=== PATIENT | female | born 1995 | race Caucasian/White ===

== ENCOUNTER → 2021-11-16 | Outpatient (CLI) | payer OTHER ==
--- NOTE | 2021-11-26 06:32 | HM ---
HOLTER MONITOR REPORT 48-hour Holter report. This is a 48-hour Holter. There was no diary provided. Predominant rhythm appears to be sinus tachycardia. Heart rate ranging from 64 to 167 beats per minute with an average heart rate of 93 beats per minute. Rare isolated PACs and PVCs were noted. No significant bradyarrhythmia was noted. FINAL IMPRESSION: Predominant rhythm is sinus rhythm and sinus tachycardia. Average heart rate of 93 beats per minute. Rare isolated PACs and PVCs. No significant bradyarrhythmia noted. No diary provided. MMODL / IJN: [id number] /
== END | disposition home or self-care (01) ==
LOC: RADECHMAIN 07:41
PROVIDERS: ATTEND Family Medicine
DX: R00.0 Tachycardia, unspecified (principal); I49.9 Cardiac arrhythmia, unspecified
CPT/HCPCS: 93225; 93226

== ENCOUNTER → 2022-01-10 | Outpatient (CLI) | payer OTHER ==
--- NOTE | 2022-01-11 11:17 | CA ---
Transthoracic Echo Report Name: Deirdre Rowell Age: 26 Gender: F : 1995 Exam Date: 01/10/2022 13:23 Exam Location: [facility] Ht (in): 62 Wt (lb): 182 Ordering Physician: Heber Kumar MD Attending/Referring Phys: José PATEL Cardiology Consultant Sisi Carpio RDCS Procedure CPT: Indications: I34.0 Mitral valve insufficiency Cardiac Hx: Technical Quality: Fair Contrast 1: Total Dose (mL): Contrast 2: Total Dose (mL): MEASUREMENTS (Male / Female) Normal Values 2D ECHO LV Diastolic Diameter PLAX 4.5 cm 4.2 - 5.9 / 3.9 - 5.3 cm LV Systolic Diameter PLAX 2.8 cm IVS Diastolic Thickness 1.5 cm 0.6 - 1.0 / 0.6 - 0.9 cm LVPW Diastolic Thickness 1.4 cm 0.6 - 1.0 / 0.6 - 0.9 cm LV Relative Wall Thickness 0.6 RV Internal Dim ED PLAX 2.2 cm LA Volume 27.7 cm??? 18 - 58 / 22 - 52 cm??? M-MODE Aortic Root Diameter MM 2.9 cm LA Systolic Diameter MM 2.5 cm LA Ao Ratio MM 0.9 AV Cusp Separation MM 1.9 cm DOPPLER AV Peak Velocity 93.9 cm/s AV Peak Gradient 3.5 mmHg LVOT Peak Velocity 68.2 cm/s LVOT Peak Gradient 1.9 mmHg FINDINGS Left Ventricle Moderately increased left ventricular wall thickness. Mildly reduced global left ventricular systolic function. Left ventricular ejection fraction is estimated at 50 %. Right Ventricle Normal right ventricular size and function. Right ventricular systolic pressure within normal limits. Right Atrium Normal right atrial size. Left Atrium Normal left atrial size. No evidence for an atrial septal defect. Mitral Valve Mild mitral annular calcification. Trace to mild mitral regurgitation. Aortic Valve No aortic stenosis. No aortic regurgitation. Aortic valve sclerosis. Tricuspid Valve Structurally normal tricuspid valve. Mild tricuspid regurgitation. Pulmonic Valve Structurally normal pulmonic valve. Trace pulmonic regurgitation. Pericardium No pericardial effusion. Aorta Normal size aortic root and proximal ascending aorta. CONCLUSIONS LVH with ejection fraction of 50% Mild inferior wall hypokinesis Previewed by: Dr. Mitchell Fishman MD (Electronically Signed) Final Date: 11 January 2022 11:16
== END | disposition home or self-care (01) ==
LOC: RADECHMAIN 13:11
PROVIDERS: ATTEND Family Medicine
DX: I34.0 Nonrheumatic mitral (valve) insufficiency (principal)
CPT/HCPCS: 93306

== ENCOUNTER → 2022-04-06 | Outpatient (CLI) | payer OTHER ==
--- NOTE | 2022-04-07 09:57 | MR ---
EXAMINATION TYPE: MR brain wo con DATE OF EXAM: 04/06/2022 4:55 PM COMPARISON: None CLINICAL INDICATION:Female, 26 years old with history of G40.909 EPILEPSY; TECHNIQUE: Multi planar, multi sequence imaging was performed through the brain including: T1, T2, In version recovery, Diffusion weighted imaging, and gradient echo imaging. No gadolinium was given. FINDINGS: The delaney-white junctions, ventricular system, and cisterns appear unremarkable. Midline structures sh ow no abnormality. Diffusion-weighted imaging shows no evidence of restricted diffusion. The suscepti bility weighted images do not reveal any evidence for micro-hemorrhage. The bone marrow signal is within normal limits. Paranasal sinuses and mastoid air cells: Mild scattered paranasal sinus disease. Visualized orbits: Orbital contents are intact. IMPRESSION: No evidence of intracranial mass or acute/subacute infarct.
== END | disposition home or self-care (01) ==
LOC: RADMRIMAIN 16:13
PROVIDERS: ATTEND Family Medicine
DX: G40.909 Epilepsy, unspecified, not intractable, without status epilepticus (principal)
CPT/HCPCS: 70551

== ENCOUNTER → 2022-09-08 | Outpatient (CLI) | payer OTHER ==
[~2022-09-08] MED LIST: REGADENOSON 0.4 MG/5 ML SYRINGE IV PRN
--- NOTE | 2022-09-08 11:57 | CA ---
Lexiscan Nuclear Stress Test Report Name: Deirdre Rowell Exam Date: 09/08/2022 10:36 Exam Location: [facility] Ht (in): 62 Wt (lb): 182 BSA: 1.84 Ordering Phys: Jose M Contreras MD Referring Phys: JOSE M CONTRERAS,, Technologist: Cristiano Lujan Age: 27 Gender: F : 1995 Procedure CPT: Indications: R93.1 ICD-10 Codes: Patient History: CHEST PAIN, DIFFICULTY IN BREATHING, PALPITATIONS, DIABETES, FAMILY HX OF HEART DISEASE, PRIOR SMOKER QUIT 8 YEARS AGO (0.25 PPD X 2 YEARS) Medications: GABAPENTIN , LITHIUM, KEPRA, TOPOMAX, TIZADINE, MELOXICAM, TORODOL Meds past 24 hrs: Pretest Chest Pain: STRESS TEST Lexiscan Protocol Exercise Duration (min:sec): 02:[address] Depressions (mm): Angina Score: De Jesus Score: Resting HR (bpm): 92 Peak HR (bpm): 142 Resting BP (mmHg): 101 / 61 Peak BP (mmHg): 111 / 58 MPHR: 191 Target HR: 162 % MPHR: 74 METS: 1.0 Total Dose: Peak Dose: Atropine: Double Product: 65880 BP Response: Stress Termination: INFUSION COMPLETE Stress Symptoms: SHORTNESS OF BREATH, CHEST PAIN "5" Stress Summary: ECG ANALYSIS Resting ECG: Normal sinus rhythm normal axis, and develops Q waves in the inferior leads Stress ECG: Patient was given Lexiscan protocol name is no significant ST segment depression CONCLUSIONS Negative stress test by EKG criteria Cardiolite portion of stress test will be reported separately Dr. Jose M Contreras MD (Electronically Signed) Final Date: 08 September 2022 11:56
--- NOTE | 2022-09-08 13:15 | NM ---
EXAMINATION TYPE: NM stress lexiscan cardiolite DATE OF EXAM: 09/08/2022 COMPARISON: NONE CLINICAL INDICATION: Female, 27 years old with history of R93.1; TECHNIQUE: After the intravenous administration of 9.94 mCi Tc 99m Sestamibi - Cardiolite resting SP ECT images acquired 45 minutes post injection. The patient received 0.4mg Lexiscan, 26.1 mCi Tc 99m Sestamibi - Stress images obtained [address] injection FINDINGS: Review of stress and rest SPECT images demonstrates no distinct perfusion abnormality. Gated analysi s shows normal wall motion with an estimated left ventricular ejection fraction of 49 %. IMPRESSION: Ejection fraction of only 49%. No definite stress-induced reversible ischemia.
== END | disposition home or self-care (01) ==
LOC: RADNMMAIN 08:57
PROVIDERS: ATTEND Internal Medicine Cardiovascular Disease
DX: R07.9 Chest pain, unspecified (principal); R93.1 Abnormal findings on diagnostic imaging of heart and coronary circulation
CPT/HCPCS: 93017; 78452; A9500; J2785

== ENCOUNTER 2022-11-13 14:21 | Emergency (ER) | payer OTHER ==
[2022-11-13 14:42] VITALS: RESP 18; TEMP 98
[2022-11-13] MEDS ORDERED: SODIUM CHLORIDE 0.9% 1,000 ML IV ONE (15:04)
--- NOTE | 2022-11-13 15:36 | ED ---
General Adult HPI - General Source: patient, RN notes reviewed, old records reviewed Mode of arrival: ambulatory Limitations: altered mental status <Rosendo Chow - Last Filed: 11/13/22 16:03> <Cecilio Baez - Last Filed: 11/21/22 03:49> - General Chief complaint: Neuro Symptoms/Deficit Stated complaint: Low BP Time Seen by Provider: 11/13/22 14:53 - History of Present Illness Initial comments: 27-year-old female presents for evaluation of lethargy and hypotension. Patient had been seen at [facility] yesterday and apparently have full workup. She was discharged home and it followed up with the primary care provider this morning, Dr. Kumar. Dr. Kumar accent the patient to the emergency department for low blood pressure and lethargy. Patient had recent admission with prolonged seizure and apparently did have some anoxic brain injury associated with this. She is also on multiple medications and took an Ativan just prior to arrival. His been no measured fever. No vomiting. Denies headache. Patient will answer simple questions but the majority of the history is provided from patient's roommate who is at bedside. (Rosendo Chow) - Related Data Home Medications Medication Instructions Recorded Confirmed Albuterol Inhaler [Ventolin Hfa 1 - 2 puff INHALATION RT-Q6H PRN 09/30/22 09/30/22 Inhaler] Empagliflozin [Jardiance] 10 mg PO DAILY 09/30/22 09/30/22 Famotidine 40 mg PO DAILY 09/30/22 09/30/22 Fluticasone Nasal [place] [Flonase 1 spray EA NOSTRIL DAILY 09/30/22 09/30/22 Nasal [place]] Gabapentin [Neurontin] 400 mg PO TID 09/30/22 09/30/22 INSULIN LISPRO (humaLOG) [humaLOG] 3 units SQ TID-W/MEALS 09/30/22 09/30/22 Ibuprofen [Motrin] 800 mg PO QID PRN 09/30/22 09/30/22 LORazepam [Ativan] 0.5 mg PO DAILY PRN 09/30/22 09/30/22 Labetalol [Trandate] 100 mg PO BID 09/30/22 09/30/22 Spencer Carbonate ER [Lithobid] 450 mg PO HS 09/30/22 09/30/22 Meloxicam [Mobic] 15 mg PO DAILY 09/30/22 09/30/22 Olanzapine/Samidorphan Malate 1 tab PO HS 09/30/22 09/30/22 [Lybalvi 10-10 mg Tablet] Omeprazole 40 mg PO DAILY 09/30/22 09/30/22 Potassium Chloride ER [K-Dur 10] 10 meq PO DAILY 09/30/22 09/30/22 QUEtiapine [SEROquel] 25 mg PO HS 09/30/22 09/30/22 QUEtiapine [SEROquel] 100 mg PO HS 09/30/22 09/30/22 Rimegepant Sulfate [Nurtec Odt] 75 mg PO DAILY PRN 09/30/22 09/30/22 Topiramate 200 mg PO TID 09/30/22 09/30/22 lamoTRIgine [LaMICtal] See Taper PO DIRECTED 09/30/22 09/30/22 levETIRAcetam [Keppra] 750 mg PO BID 09/30/22 09/30/22 lisinopriL [Zestril] 5 mg PO DAILY 09/30/22 09/30/22 medroxyPROGESTERone [Depo-Provera] 150 mg IM Q90D 09/30/22 09/30/22 tiZANidine [Zanaflex] 2 mg PO Q8HR PRN 09/30/22 09/30/22 Allergies Allergy/AdvReac Type Severity Reaction Status Date / Time acetaminophen [From Tylenol] Allergy Rash/Hives Verified 11/13/22 14:34 Penicillins Allergy Rash/Hives Verified 11/13/22 14:34 Review of Systems ROS Other: All systems not noted in ROS Statement are negative. <Rosendo Chow - Last Filed: 11/13/22 16:03> ROS Other: All systems not noted in ROS Statement are negative. <Cecilio Baez - Last Filed: 11/21/22 03:49> ROS Statement: Those systems with pertinent positive or pertinent negative responses have been documented in the HPI. Past Medical History Past Medical History: Diabetes Mellitus, Hyperlipidemia, Hypertension, Seizure Disorder Additional Past Medical History / Comment(s): Epilepsy, mitral valve insufficancy History of Any Multi-Drug Resistant Organisms: None Reported Past Surgical History: Unable to Obtain Additional Past Surgical History / Comment(s): Tubes in ears when 5 years old Past Anesthesia/Blood Transfusion Reactions: No Reported Reaction Past Psychological History: Bipolar, Depression Smoking Status: Never smoker, Unknown if ever smoked Past Alcohol Use History: None Reported Past Drug Use History: None Reported - Past Family History Sister(s) Family Medical History: Asthma Additional Family Medical History / Comment(s): psychological Mother Family Medical History: Dementia Father Family Medical History: Myocardial Infarction ([place]) Additional Family Medical History / Comment(s): passed @ 72 from [place] <Rosendo Chow - Last Filed: 11/13/22 16:03> General Exam Limitations: altered mental status General appearance: in no apparent distress, lethargic Head exam: Present: atraumatic, normocephalic Eye exam: Present: normal appearance, PERRL ENT exam: Present: normal exam Respiratory exam: Present: normal lung sounds bilaterally. Absent: respiratory distress, wheezes Cardiovascular Exam: Present: regular rate, normal rhythm Extremities exam: Present: normal inspection, normal capillary refill Neurological exam: Present: alert. Absent: oriented X3, motor sensory deficit Psychiatric exam: Present: flat affect Skin exam: Present: warm, dry, intact. Absent: cyanosis, diaphoretic <Rosendo Chow - Last Filed: 11/13/22 16:03> Course <Rosendo Chow - Last Filed: 11/13/22 16:03> Vital Signs 11/13/22 11/13/22 14:34 18:27 Temperature 98.0 F Pulse Rate 94 67 Respiratory 18 18 Rate Blood Pressure 103/72 104/67 O2 Sat by Pulse 100 99 Oximetry - Reevaluation(s) Reevaluation #1: 11/13/22 16:03 Patient care signed out to Dr. Can at shift change. (Rosendo Chow) Medical Decision Making <Rosendo Chow - Last Filed: 11/13/22 16:03> - Lab Data Result diagrams: 11/13/22 15:42 11/13/22 15:42 <Cecilio Baez - Last Filed: 11/21/22 03:49> - Medical Decision Making Was pt. sent in by a medical professional or institution (Dr., PA, BRIM CURLER, urgent care, hospital, or penitentiary...) When possible be specific @ -[No] Did you speak to anyone other than the patient for history (EMS, parent, family, police, friend...)? What history was obtained from this source @ -[No] Did you review nursing and triage notes (agree or disagree)? Why? @ -[I reviewed and agree with nursing and triage notes] Were old charts reviewed (outside hosp., previous admission, EMS record, old EKG, old radiological studies, urgent care reports/EKG's, penitentiary records)? Report findings @ -[No old charts were reviewed] Differential Diagnosis (chest pain, altered mental status, abdominal pain women, abdominal pain men, vaginal bleeding, weakness, fever, dyspnea, syncope, headache, dizziness, GI bleed, back pain, seizure, CVA, palpatations, mental health, musculoskeletal)? @ -[not applicable] EKG interpreted by me (3pts min.). @ Sinus rhythm rate of 85, UT interval 172, QRS duration 89, QTC [address] segment elevation X-rays interpreted by me (1pt min.). @ -[None done] CT interpreted by me (1pt min.). @ -[None done] U/S interpreted by me (1pt. min.). @ -[None done] What testing was considered but not performed or refused? (CT, X-rays, U/S, labs)? Why? @ -[None] What meds were considered but not given or refused? Why? @ -[None] Did you discuss the management of the patient with other professionals (professionals i.e. TERRIE Dickson, BRIM CURLER, lab, RT, psych nurse, social service worker, manager nursing, teacher, national service officer, telephonic case manager)? Give summary @ -[No] Was smoking cessation discussed for >3mins.? @ -[No] Was critical care preformed (if so, how long)? @ -[No] Were there social determinants of health that impacted care today? How? (Homelessness, low income, unemployed, alcoholism, drug addiction, transportation, low edu. Level, literacy, decrease access to med. care, half-way, rehab)? @ -[No] Was there de-escalation of care discussed even if they declined (Discuss DNR or withdrawal of care, Hospice)? DNR status @ -[No] What co-morbidities impacted this encounter? (DM, HTN, Smoking, COPD, CAD, Cancer, CVA, ARF, Chemo, Hep., AIDS, mental health diagnosis, sleep apnea, morbid obesity)? @ -[None] Was patient admitted / discharged? Hospital course, mention meds given and route, prescriptions, significant lab abnormalities, going to OR and other pertinent info. @ -[hospital course] Undiagnosed new problem with uncertain prognosis? @ -[No] Drug Therapy requiring intensive monitoring for toxicity (Heparin, Nitro, Insulin, Cardizem)? @ -[No] Were any procedures done? @ -[No] Diagnosis/symptom? @ -[default] Acute, or Chronic, or Acute on Chronic? @ -[default] Uncomplicated (without systemic symptoms) or Complicated (systemic symptoms)? @ -[default] Side effects of treatment? @ -[No] Exacerbation, Progression, or Severe Exacerbation? @ -[No] Poses a threat to life or bodily function? How? (Chest pain, [place], [place], pneumonia, PE, COPD, DKA, ARF, appy, cholecystitis, CVA, Diverticulitis, Homicidal, Suicidal, threat to staff... and all critical care pts) @ -[No] (Rosendo Chow) I receive this patient at the shift change. When all the studies were completed, I discussed with the patient that Dr. Chow had wanted her to be admitted and to have neurology consultation. I went and wrote the admission orders after discussing with her primary physician. Shortly after that time out was informed by the nursing that the patient had changed her mind and that she wanted to leave. She was informed of risks by nursing staff and did sign AMA paperwork while I was tied up with another patient Was patient admitted / discharged? Hospital course, mention meds given and route, prescriptions, significant lab abnormalities, going to OR and other pertinent info. @ -[I had reviewed the patient's study results, written the admission orders after discussing with her primary physician. Undiagnosed new problem with uncertain prognosis? @ -[No] Drug Therapy requiring intensive monitoring for toxicity (Heparin, Nitro, Insulin, Cardizem)? @ -[No] Were any procedures done? @ -[No] Diagnosis/symptom? @ -[Acute altered mental status Acute, or Chronic, or Acute on Chronic? @ -[Acute Uncomplicated (without systemic symptoms) or Complicated (systemic symptoms)? @ -[Uncomplicated Side effects of treatment? @ -[No] Exacerbation, Progression, or Severe Exacerbation? @ -[No] Poses a threat to life or bodily function? How? (Chest pain, [place], [place], pneumonia, PE, COPD, DKA, ARF, appy, cholecystitis, CVA, Diverticulitis, Homicidal, S uicidal, threat to staff... and all critical care pts) @ -[Undetermined at this point (Cecilio Baez) - Lab Data Lab Results 11/13/22 11/13/22 11/13/22 Range/Units 15:42 15:42 15:42 WBC 6.3 (3.8-10.6) k/uL RBC 4.76 (3.80-5.40) m/uL Hgb 15.1 D (11.4-16.0) gm/dL Hct 44.6 (34.0-46.0) % MCV 93.6 (80.0-100.0) fL MCH 31.8 (25.0-35.0) pg MCHC 34.0 (31.0-37.0) g/dL RDW 14.0 (11.5-15.5) % Plt Count 252 (150-450) k/uL MPV 8.3 Neutrophils % 54 % Lymphocytes % 35 % Monocytes % 6 % Eosinophils % 4 % Basophils % 1 % Neutrophils # 3.4 (1.3-7.7) k/uL Lymphocytes # 2.2 (1.0-4.8) k/uL Monocytes # 0.4 (0-1.0) k/uL Eosinophils # 0.2 (0-0.7) k/uL Basophils # 0.0 (0-0.2) k/uL PT 11.1 (9.0-12.0) sec INR 1.1 (<1.2) APTT 24.4 (22.0-30.0) sec Sodium 147 H (137-145) mmol/L Potassium 3.8 (3.5-5.1) mmol/L Chloride 119 H (98-107) mmol/L Carbon Dioxide 17 L (22-30) mmol/L Anion Gap 11 mmol/L BUN 7 (7-17) mg/dL Creatinine 0.60 (0.52-1.04) mg/dL Est GFR (CKD-EPI)AfAm >90 (>60 ml/min/1.73 sqM) Est GFR (CKD-EPI)NonAf >90 (>60 ml/min/1.73 sqM) Glucose 90 (74-99) mg/dL Calcium 9.0 (8.4-10.2) mg/dL Total Bilirubin 0.4 (0.2-1.3) mg/dL AST 19 (14-36) U/L ALT 17 (4-34) U/L Alkaline Phosphatase 48 (38-126) U/L Ammonia (<30) umol/L Troponin I (0.000-0.034) ng/mL Total Protein 7.3 (6.3-8.2) g/dL Albumin 4.0 (3.5-5.0) g/dL Urine Color Urine Appearance (Clear) Urine pH (5.0-8.0) Ur Specific [place] (1.001-1.035) Urine Protein (Negative) Urine Glucose (UA) (Negative) Urine Ketones (Negative) Urine Blood (Negative) Urine Nitrite (Negative) Urine Bilirubin (Negative) Urine Urobilinogen (<2.0) mg/dL Ur Leukocyte Esterase (Negative) Urine RBC (0-5) /hpf Urine WBC (0-5) /hpf Ur Squamous Epith Cells (0-4) /hpf Urine Bacteria (None) /hpf Urine Mucus (None) /hpf Urine Opiates Screen (NotDetected) Ur Oxycodone Screen (NotDetected) Urine Methadone Screen (NotDetected) Ur Propoxyphene Screen (NotDetected) Ur Barbiturates Screen (NotDetected) U Tricyclic Antidepress (NotDetected) Ur Phencyclidine Scrn (NotDetected) Ur Amphetamines Screen (NotDetected) U Methamphetamines Scrn (NotDetected) U Benzodiazepines Scrn (NotDetected) Spencer <0.2 mmol/L Urine Cocaine Screen (NotDetected) U Marijuana (THC) Screen (NotDetected) Serum Alcohol <10 mg/dL 11/13/22 11/13/22 11/13/22 Range/Units 15:42 15:42 16:24 WBC (3.8-10.6) k/uL RBC (3.80-5.40) m/uL Hgb (11.4-16.0) gm/dL Hct (34.0-46.0) % MCV (80.0-100.0) fL MCH (25.0-35.0) pg MCHC (31.0-37.0) g/dL RDW (11.5-15.5) % Plt Count (150-450) k/uL MPV Neutrophils % % Lymphocytes % % Monocytes % % Eosinophils % % Basophils % % Neutrophils # (1.3-7.7) k/uL Lymphocytes # (1.0-4.8) k/uL Monocytes # (0-1.0) k/uL Eosinophils # (0-0.7) k/uL Basophils # (0-0.2) k/uL PT (9.0-12.0) sec INR (<1.2) APTT (22.0-30.0) sec Sodium (137-145) mmol/L Potassium (3.5-5.1) mmol/L Chloride (98-107) mmol/L Carbon Dioxide (22-30) mmol/L Anion Gap mmol/L BUN (7-17) mg/dL Creatinine (0.52-1.04) mg/dL Est GFR (CKD-EPI)AfAm (>60 ml/min/1.73 sqM) Est GFR (CKD-EPI)NonAf (>60 ml/min/1.73 sqM) Glucose (74-99) mg/dL Calcium (8.4-10.2) mg/dL Total Bilirubin (0.2-1.3) mg/dL AST (14-36) U/L ALT (4-34) U/L Alkaline Phosphatase (38-126) U/L Ammonia 103 H (<30) umol/L Troponin I <0.012 (0.000-0.034) ng/mL Total Protein (6.3-8.2) g/dL Albumin (3.5-5.0) g/dL Urine Color Yellow Urine Appearance Clear (Clear) Urine pH 6.5 (5.0-8.0) Ur Specific [place] 1.020 (1.001-1.035) Urine Protein Negative (Negative) Urine Glucose (UA) Negative (Negative) Urine Ketones Trace (Negative) Urine Blood Negative (Negative) Urine Nitrite Negative (Negative) Urine Bilirubin Negative (Negative) Urine Urobilinogen <2.0 (<2.0) mg/dL Ur Leukocyte Esterase Moderate (Negative) Urine RBC 1 (0-5) /hpf Urine WBC 3 (0-5) /hpf Ur Squamous Epith Cells 3 (0-4) /hpf Urine Bacteria Few H (None) /hpf Urine Mucus Rare H (None) /hpf Urine Opiates Screen Not Detected (NotDetected) Ur Oxycodone Screen Not Detected (NotDetected) Urine Methadone Screen Not Detected (NotDetected) Ur Propoxyphene Screen Not Detected (NotDetected) Ur Barbiturates Screen Detected H (NotDetected) U Tricyclic Antidepress Not Detected (NotDetected) Ur Phencyclidine Scrn Not Detected (NotDetected) Ur Amphetamines Screen Not Detected (NotDetected) U Methamphetamines Scrn Not Detected (NotDetected) U Benzodiazepines Scrn Detected H (NotDetected) [place] mmol/L Urine Cocaine Screen Not Detected (NotDetected) U Marijuana (THC) Screen Not Detected (NotDetected) Serum Alcohol mg/dL Disposition <Rosendo Chow - Last Filed: 11/13/22 16:03> Is patient prescribed a controlled substance at d/c from ED?: No <Cecilio Baez - Last Filed: 11/21/22 03:49> Clinical Impression: Altered mental status, Dehydration Disposition: LEFT AGAINST MEDICAL ADVICE Condition: Fair Instructions (If sedation given, give patient instructions): Altered Mental Status (ED) Referrals: Heber Kumar MD [Primary Care Provider] - 1-2 days
[2022-11-13 15:58] LABS: Basophils % (A) 1 %; Eosinophils # (A) 0.2 k/uL (0-0.7); Eosinophils % (A) 4 %; HCT 44.6 % (34.0-46.0); Lymphocytes # (A) 2.2 k/uL (1.0-4.8); Lymphocytes % (A) 35 %; MCH 31.8 pg (25.0-35.0); MCV 93.6 fL (80.0-100.0); Mean Platelet Volume 8.3; Monocytes # (A) 0.4 k/uL (0-1.0); Monocytes % (A) 6 %; Neutrophils # (A) 3.4 k/uL (1.3-7.7); Neutrophils % (A) 54 %; Platelet Count 252 k/uL (150-450); RBC 4.76 m/uL (3.80-5.40); WBC 6.3 k/uL (3.8-10.6)
[2022-11-13 16:10] LABS: INR 1.1 (<1.2); Partial Thromboplastin Time 24.4 sec (22.0-30.0); Prothrombin Time 11.1 sec (9.0-12.0)
[2022-11-13 16:23] LABS: HGB 15.1 gm/dL (11.4-16.0)
[2022-11-13 16:35] LABS: Appearance,Urine Clear (Clear); Color,Urine Yellow
[2022-11-13 16:35] LABS: ALT 17 U/L (4-34); AST 19 U/L (14-36); African American GFR (CKD) >90 (>60 ml/min/1.73 sqM); Alcohol <10 mg/dL; Alkaline Phosphatase 48 U/L (38-126); Anion Gap 11 mmol/L; Blood Urea Nitrogen 7 mg/dL (7-17); Carbon Dioxide 17 mmol/L (22-30); Chloride 119 mmol/L (98-107); Glucose 90 mg/dL (74-99); Lithium <0.2 mmol/L; Non-African American GFR(CKD) >90 (>60 ml/min/1.73 sqM); Potassium 3.8 mmol/L (3.5-5.1); Sodium 147 mmol/L (137-145); Total Bilirubin 0.4 mg/dL (0.2-1.3); Total Protein 7.3 g/dL (6.3-8.2)
[2022-11-13 16:36] LABS: Bilirubin,Urine Negative (Negative); Blood,Urine Negative (Negative); Glucose,Urine (UA) Negative (Negative); Ketones,Urine Trace (Negative); Leukocyte Esterase,Urine Moderate (Negative); Nitrite,Urine Negative (Negative); PH, Urine 6.5 (5.0-8.0); Protein,Urine Negative (Negative); Urobilinogen,Urine <2.0 mg/dL (<2.0)
[2022-11-13 16:40] LABS: Bacteria,Urine Few /hpf; Mucus,Urine Rare /hpf; RBC,Urine 1 /hpf (0-5); Squamous Epithelial Cell,Urine 3 /hpf (0-4); WBC,Urine 3 /hpf (0-5)
[2022-11-13 16:46] LABS: Amphetamine Screen,Urine Not Detected (NotDetected); Barbiturate Screen,Urine Detected (NotDetected); Benzodiazepines Screen,Urine Detected (NotDetected); Cocaine Screen,Urine Not Detected (NotDetected); Methadone Screen, Urine Not Detected (NotDetected); Opiate Screen,Urine Not Detected (NotDetected); Oxycodone Screen, Urine Not Detected (NotDetected); Phencyclidine Screen,Urine Not Detected (NotDetected); Tricyclic Antidepressant,Urine Not Detected (NotDetected); Urn Cannabinoid Scrn Not Detected (NotDetected)
[2022-11-13] MEDS ORDERED: NALOXONE 0.4 MG/ML 1 ML VIAL IV PRN (18:03)
[2022-11-13] MEDS ORDERED: SODIUM CHLORIDE 0.9% 1,000 ML IV SCH (18:15)
[2022-11-13 18:27] VITALS: BP 104/67; PULSE 67
--- NOTE | 2022-11-15 15:29 | HP ---
HISTORY AND PHYSICAL CHIEF COMPLAINT: Mental status changes. HISTORY OF PRESENT ILLNESS: This is another admission for this 27-year-old white female. About a month or so ago, she was in the hospital for grand mal seizure disorder and she went into status epilepticus and was transferred to [facility]. She was there for extended period of time. She initially was in ICU on a ventilator. As she recovered, it became clear that she had suffered some anoxic brain injury. She recently returned home, but her mentation has been slowed. She was in the office last week, doing well and then apparently over the weekend she became more somnolent and confused and was taken to the emergency room at [facility] where she was evaluated and then released. Her roommate states that she has been having some seizures over the last several days. She came back into the office today on the day of admission and was more lethargic and hypotensive with a systolic blood pressure of 88. She could not be further evaluated and was referred to the hospital for admission. It is not clear if this is related to encephalopathy, hypotension, seizure activity with postictal depression, etc. REVIEW OF SYSTEMS: Not obtainable. She does deny headache, chest pain, abdominal pain, or chills. Past medical history, family history, personal and social histories reveal that she is allergic to numerous items such as erythromycin, Vraylar, sulfa, Cymbalta, Lipitor, Tylenol, Benadryl, and penicillin. We believe her current medications include levetiracetam 1 g twice a day, gabapentin 600 mg 4 times a day, ibuprofen 800 mg 4 times a day, Depakote 500 mg twice a day, Ativan 0.5 t.i.d. p.r.n., rosuvastatin 40 mg once a day, vitamin B12 injections, thiamin 100 mg once a day, ferrous sulfate 300 mg/5 mL twice a day, vitamin C, Lamictal 100 mg twice a day, and Topamax 200 mg 3 times a day. Remainder of her history is unremarkable. She used to smoke, but does not any longer. She only drinks occasionally. PHYSICAL EXAMINATION: VITAL SIGNS: Blood pressure is 88/44 with a pulse of 90 and regular, respirations 14 and she is afebrile. GENERAL: She appeared to be very somnolent. SKIN: Dry. HEAD, EARS, EYES, NOSE, MOUTH AND THROAT: Normal. NECK: Supple. CHEST: Clear. CARDIAC: Demonstrated normal sinus rhythm. ABDOMEN: Soft. EXTREMITIES: Normal. NEUROLOGIC: She was lethargic, but had no obvious sensory motor findings. IMPRESSION: 1. Mental status changes. 2. Hypotension. 3. Status post anoxic brain injury. 4. History of grand mal seizures with status epilepticus. 5. Rule out electrolyte imbalance. 6. Rule out postictal depression. 7. Rule out metabolic disorder. 8. Rule out medication issue. MMODL / IJN: [id number] /
--- NOTE | 2022-11-15 15:31 | DS ---
DISCHARGE SUMMARY CHIEF COMPLAINT: Lethargy, delirium, and hypotension. HISTORY OF PRESENT ILLNESS AND PHYSICAL EXAMINATION: Details of this lady's history and physical can be found in the initial workup. LABORATORY STUDIES: While she was in the hospital, she had laboratory studies, details of which can be found in the laboratory section of her chart. COURSE IN THE HOSPITAL: After admission, she was placed on bedrest, started on intravenous fluids and was to be worked up for mental status changes and possible medication effect and/or postictal depression following seizure. As she was being admitted, she decided not to stay and signed out AMA. FINAL DIAGNOSES: 1. Mental status changes. 2. Hypotension. 3. Seizure disorder. 4. Postictal depression. 5. Anoxic encephalopathy. OPERATIONS: None. CONSULTATIONS: None. DISPOSITION: She left AMA. PALOMA / LINDEN: [id number] /
== END 2022-11-13 19:17 | disposition left against medical advice (07) ==
LOC: EC 14:21
DX: R41.82 Altered mental status, unspecified (principal); E86.0 Dehydration; E11.9 Type 2 diabetes mellitus without complications; E78.5 Hyperlipidemia, unspecified; I10 Essential (primary) hypertension; F31.9 Bipolar disorder, unspecified; Z88.0 Allergy status to penicillin; Z88.6 Allergy status to analgesic agent; Z79.4 Long term (current) use of insulin; Z79.84 Long term (current) use of oral hypoglycemic drugs; Z79.899 Other long term (current) drug therapy; Z53.29 Procedure and treatment not carried out because of patient's decision for other reasons
CPT/HCPCS: 36415; 93005; 80053; 82140; 80178; 84484; 85025; 85610; 85730; 81001; 80306; 99284; 96360; G0480; 80320

== ENCOUNTER 2022-12-22 14:49 | Emergency (ER) | payer OTHER ==
[2022-12-22 15:08] VITALS: TEMP 98
[2022-12-22] MEDS ORDERED: SODIUM CHLORIDE 0.9% 1,000 ML IV STA (15:23)
--- NOTE | 2022-12-22 16:34 | ED ---
Altered Mental Status HPI - General Chief Complaint: Altered Mental Status Stated Complaint: altered mental status Time Seen by Provider: 12/22/22 14:59 Source: patient, EMS, RN notes reviewed Mode of arrival: EMS Limitations: no limitations - History of Present Illness Initial Comments: This is a 27-year-old female who presents to the emergency department for altered mental status. Patient's caregiver states that she was fatigued and somewhat slower to respond today. She had her Lamictal dose increased from 100 to 150 mg, and took the first dose of this today as well. They noticed that she is having muscle weakness and had difficulty trying to use a fork at breakfast. She went to take a nap, and was difficult to arouse when her caregiver went to wake her. She wonders if she may have had a seizure in her sleep, but wanted her evaluated due to her irregular behavior today. Patient states that she is having some chest pain and shortness of breath. She was evaluated for this at another emergency department a few days ago for this problem and everything was found to be normal. MD Complaint: altered mental status - Related Data Home Medications Medication Instructions Recorded Confirmed Albuterol Inhaler [Ventolin Hfa 1 - 2 puff INHALATION RT-Q6H PRN 09/30/22 09/30/22 Inhaler] Empagliflozin [Jardiance] 10 mg PO DAILY 09/30/22 09/30/22 Famotidine 40 mg PO DAILY 09/30/22 09/30/22 Fluticasone Nasal [place] [Flonase 1 spray EA NOSTRIL DAILY 09/30/22 09/30/22 Nasal [place]] Gabapentin [Neurontin] 400 mg PO TID 09/30/22 09/30/22 INSULIN LISPRO (humaLOG) [humaLOG] 3 units SQ TID-W/MEALS 09/30/22 09/30/22 Ibuprofen [Motrin] 800 mg PO QID PRN 09/30/22 09/30/22 LORazepam [Ativan] 0.5 mg PO DAILY PRN 09/30/22 09/30/22 Labetalol [Trandate] 100 mg PO BID 09/30/22 09/30/22 Malmo Carbonate ER [Lithobid] 450 mg PO HS 09/30/22 09/30/22 Meloxicam [Mobic] 15 mg PO DAILY 09/30/22 09/30/22 Olanzapine/Samidorphan Malate 1 tab PO HS 09/30/22 09/30/22 [Lybalvi 10-10 mg Tablet] Omeprazole 40 mg PO DAILY 09/30/22 09/30/22 Potassium Chloride ER [K-Dur 10] 10 meq PO DAILY 09/30/22 09/30/22 QUEtiapine [SEROquel] 25 mg PO HS 09/30/22 09/30/22 QUEtiapine [SEROquel] 100 mg PO HS 09/30/22 09/30/22 Rimegepant Sulfate [Nurtec Odt] 75 mg PO DAILY PRN 09/30/22 09/30/22 Topiramate 200 mg PO TID 09/30/22 09/30/22 lamoTRIgine [LaMICtal] See Taper PO DIRECTED 09/30/22 09/30/22 levETIRAcetam [Keppra] 750 mg PO BID 09/30/22 09/30/22 lisinopriL [Zestril] 5 mg PO DAILY 09/30/22 09/30/22 medroxyPROGESTERone [Depo-Provera] 150 mg IM Q90D 09/30/22 09/30/22 tiZANidine [Zanaflex] 2 mg PO Q8HR PRN 09/30/22 09/30/22 Allergies Allergy/AdvReac Type Severity Reaction Status Date / Time acetaminophen [From Tylenol] Allergy Rash/Hives Verified 12/22/22 14:57 Penicillins Allergy Rash/Hives Verified 12/22/22 14:57 Review of Systems ROS Statement: Those systems with pertinent positive or pertinent negative responses have been documented in the HPI. ROS Other: All systems not noted in ROS Statement are negative. Past Medical History Past Medical History: Diabetes Mellitus, Hyperlipidemia, Hypertension, Seizure Disorder Additional Past Medical History / Comment(s): Epilepsy, mitral valve insufficancy History of Any Multi-Drug Resistant Organisms: None Reported Past Surgical History: Unable to Obtain Additional Past Surgical History / Comment(s): Tubes in ears when 5 years old Past Anesthesia/Blood Transfusion Reactions: No Reported Reaction Past Psychological History: Bipolar, Depression Smoking Status: Never smoker, Unknown if ever smoked Past Alcohol Use History: None Reported Past Drug Use History: None Reported - Past Family History Sister(s) Family Medical History: Asthma Additional Family Medical History / Comment(s): psychological Mother Family Medical History: Dementia Father Family Medical History: Myocardial Infarction ([place]) Additional Family Medical History / Comment(s): passed @ 72 from [place] General Exam Limitations: no limitations General appearance: alert, in no apparent distress Head exam: Present: atraumatic, normocephalic, normal inspection Respiratory exam: Present: normal lung sounds bilaterally. Absent: respiratory distress, wheezes, rales, rhonchi, stridor Cardiovascular Exam: Present: regular rate, normal rhythm, normal heart sounds. Absent: systolic murmur, diastolic murmur, rubs, gallop, clicks Neurological exam: Present: alert Psychiatric exam: Present: normal affect, normal mood Skin exam: Present: warm, dry, intact, normal color. Absent: rash Course Vital Signs 12/22/22 12/22/22 12/22/22 14:51 15:57 16:00 Temperature 98 F Pulse Rate 82 80 80 Respiratory 18 18 20 Rate Blood Pressure 105/80 102/68 O2 Sat by Pulse 100 98 100 Oximetry 12/22/22 12/22/22 18:00 19:50 Temperature Pulse Rate 83 89 Respiratory 18 18 Rate Blood Pressure 98/61 101/81 O2 Sat by Pulse 99 99 Oximetry Medical Decision Making - Medical Decision Making This is a 27-year-old female who presents to the emergency department for altered mental status. Was pt. sent in by a medical professional or institution? @ -No Did you speak to anyone other than the patient for history? @ -Her caregiver and EMS provided the majority of the information, with the patient saying that she was exhibiting some shortness of breath and chest pain. Did you review nursing and triage notes? @ -Yes, and I agree, it is accurate with regards to the patient's symptoms. Were old charts reviewed? @ -No Differential Diagnosis? @ -Differential Altered Mental Status: Hypoglycemia, DKA, hypercapnia, ETOH, overdose, CO poisoning, trauma, myxedema coma, HTN encephalopathy, infection, encephalitis, psychosis, intercranial hemorrhage, hepatic encephalopathy, meningitis, CVA, this is not meant to be an all-inclusive list EKG interpreted by me (3pts min.)? @ -EKG interpreted by me demonstrating the following: Sinus rhythm. Ventricular rate 78 beats per minute, CA interval 215 milliseconds, QRS duration 92 ms, QTC 414 ms. X-rays interpreted by me (1pt min.)? @ -Chest x-ray obtained, my interpretation identifies no localized consolidations or infiltrates. CT interpreted by me (1pt min.)? @ -CT scan of the brain obtained. My interpretation identifies no evidence of acute intracranial hemorrhage or mass effect. U/S interpreted by me (1pt. min.)? @ -Not obtained What testing was considered but not performed? (CT, X-rays, U/S, labs)? Why? @ -None What meds were considered but not given? Why? @ -None Did you discuss the management of the patient with other professionals? @ -No Did you reconcile home meds? @ -No Was smoking cessation discussed for >3mins.? @ -No Was critical care preformed (if so, how long)? @ -No Were there social determinants of health that impacted care today? How? (Homelessness, low income, unemployed, alcoholism, drug addiction, transportation, low edu. Level, literacy, decrease access to med. care, [facility] [facility], rehab)? @ -No Was there de-escalation of care discussed even if they declined? (Discuss DNR or withdrawal of care, Hospice)? @ -No What co-morbidities impacted this encounter? (DM, HTN, Smoking, COPD, CAD, Cancer, CVA, Hep., AIDS, mental health diagnosis, sleep apnea, morbid obesity)? @ -DM, HLD, HTN, seizure disorder Was patient admitted / discharged? @ -Discharged. Lab work obtained and found to be nonactionable. Urinalysis negative for signs of infection. Covid, influenza, and RSV testing were negative. Chest x-ray reveals no acute process. Computed tomography scan of the brain obtained revealing no acute process. Patient was initially somewhat confused on arrival, but became much clearer and more alert as the visit progressed. Discussed with the patient and her caregiver that this could've been related to the Lamictal increase. It could also be related to a postictal state. Advised she contact her neurologist on Sunday morning and discuss this episode and her concerns. Patient otherwise discharged home in stable condition. Undiagnosed new problem with uncertain prognosis? @ -None Drug Therapy requiring intensive monitoring for toxicity (Heparin, Nitro, Insulin, Cardizem)? @ -None Were any procedures done? @ -None Diagnosis/symptom? @ -Altered mental status Acute, or Chronic, or Acute on Chronic? @ -Acute Uncomplicated (without systemic symptoms) or Complicated (systemic symptoms)? @ -Uncomplicated Side effects of treatment? @ -None Exacerbation, Progression, or Severe Exacerbation] @ -Not applicable Poses a threat to life or bodily function? @ -Unlikely Return precautions reviewed in depth, the patient is instructed to return to the emergency department with any new, worsening, or concerning symptoms. Patient verbalized understanding. This case was discussed in detail with the attending ED physician, Dr. Frank. Presentation, findings, and treatment plan discussed in detail as well. - Lab Data Result diagrams: 12/22/22 15:08 12/22/22 15:08 Lab Results 12/22/22 12/22/22 12/22/22 Range/Units 15:08 15:08 15:08 WBC 6.2 (3.8-10.6) k/uL RBC 5.00 (3.80-5.40) m/uL Hgb 15.9 (11.4-16.0) gm/dL Hct 48.1 H (34.0-46.0) % MCV 96.2 (80.0-100.0) fL MCH 31.7 (25.0-35.0) pg MCHC 33.0 (31.0-37.0) g/dL RDW 13.9 (11.5-15.5) % Plt Count 242 (150-450) k/uL MPV 8.0 Neutrophils % 58 % Lymphocytes % 30 % Monocytes % 5 % Eosinophils % 3 % Basophils % 1 % Neutrophils # 3.6 (1.3-7.7) k/uL Lymphocytes # 1.9 (1.0-4.8) k/uL Monocytes # 0.3 (0-1.0) k/uL Eosinophils # 0.2 (0-0.7) k/uL Basophils # 0.0 (0-0.2) k/uL PT 11.2 (9.0-12.0) sec INR 1.1 (<1.2) APTT 24.3 (22.0-30.0) sec D-Dimer 0.35 (<0.60) mg/L FEU Sodium 147 H (137-145) mmol/L Potassium 4.6 (3.5-5.1) mmol/L Chloride 115 H (98-107) mmol/L Carbon Dioxide 20 L (22-30) mmol/L Anion Gap 12 mmol/L BUN 10 (7-17) mg/dL Creatinine 0.79 (0.52-1.04) mg/dL Est GFR (CKD-EPI)AfAm >90 (>60 ml/min/1.73 sqM) Est GFR (CKD-EPI)NonAf >90 (>60 ml/min/1.73 sqM) Glucose 84 (74-99) mg/dL Plasma Lactic Acid Patel (0.7-2.0) mmol/L Calcium 9.3 (8.4-10.2) mg/dL Total Bilirubin 0.4 (0.2-1.3) mg/dL AST 24 (14-36) U/L ALT 15 (4-34) U/L Alkaline Phosphatase 48 (38-126) U/L Creatine Kinase 128 (30-135) U/L Troponin I (0.000-0.034) ng/mL Total Protein 7.6 (6.3-8.2) g/dL Albumin 4.3 (3.5-5.0) g/dL HCG, Qual Not Detected Urine Color Urine Appearance (Clear) Urine pH (5.0-8.0) Ur Specific Sinclair (1.001-1.035) Urine Protein (Negative) Urine Glucose (UA) (Negative) Urine Ketones (Negative) Urine Blood (Negative) Urine Nitrite (Negative) Urine Bilirubin (Negative) Urine Urobilinogen (<2.0) mg/dL Ur Leukocyte Esterase (Negative) Urine Opiates Screen (NotDetected) Ur Oxycodone Screen (NotDetected) Urine Methadone Screen (NotDetected) Ur Propoxyphene Screen (NotDetected) Ur Barbiturates Screen (NotDetected) Valproic Acid 26.7 ug/mL U Tricyclic Antidepress (NotDetected) Ur Phencyclidine Scrn (NotDetected) Ur Amphetamines Screen (NotDetected) U Methamphetamines Scrn (NotDetected) U Benzodiazepines Scrn (NotDetected) Urine Cocaine Screen (NotDetected) U Marijuana (THC) Screen (NotDetected) Serum Alcohol <10 mg/dL Influenza Type A (PCR) (Not Detectd) Influenza Type B (PCR) (Not Detectd) RSV (PCR) (Not Detectd) SARS-CoV-2 (PCR) (Not Detectd) 12/22/22 12/22/22 12/22/22 Range/Units 15:08 15:08 15:35 WBC (3.8-10.6) k/uL RBC (3.80-5.40) m/uL Hgb (11.4-16.0) gm/dL Hct (34.0-46.0) % MCV (80.0-100.0) fL MCH (25.0-35.0) pg MCHC (31.0-37.0) g/dL RDW (11.5-15.5) % Plt Count (150-450) k/uL MPV Neutrophils % % Lymphocytes % % Monocytes % % Eosinophils % % Basophils % % Neutrophils # (1.3-7.7) k/uL Lymphocytes # (1.0-4.8) k/uL Monocytes # (0-1.0) k/uL Eosinophils # (0-0.7) k/uL Basophils # (0-0.2) k/uL PT (9.0-12.0) sec INR (<1.2) APTT (22.0-30.0) sec D-Dimer (<0.60) mg/L FEU Sodium (137-145) mmol/L Potassium (3.5-5.1) mmol/L Chloride (98-107) mmol/L Carbon Dioxide (22-30) mmol/L Anion Gap mmol/L BUN (7-17) mg/dL Creatinine (0.52-1.04) mg/dL Est GFR (CKD-EPI)AfAm (>60 ml/min/1.73 sqM) Est GFR (CKD-EPI)NonAf (>60 ml/min/1.73 sqM) Glucose (74-99) mg/dL Plasma Lactic Acid Patel 0.9 (0.7-2.0) mmol/L Calcium (8.4-10.2) mg/dL Total Bilirubin (0.2-1.3) mg/dL AST (14-36) U/L ALT (4-34) U/L Alkaline Phosphatase (38-126) U/L Creatine Kinase (30-135) U/L Troponin I <0.012 (0.000-0.034) ng/mL Total Protein (6.3-8.2) g/dL Albumin (3.5-5.0) g/dL HCG, Qual Urine Color Urine Appearance (Clear) Urine pH (5.0-8.0) Ur Specific Sinclair (1.001-1.035) Urine Protein (Negative) Urine Glucose (UA) (Negative) Urine Ketones (Negative) Urine Blood (Negative) Urine Nitrite (Negative) Urine Bilirubin (Negative) Urine Urobilinogen (<2.0) mg/dL Ur Leukocyte Esterase (Negative) Urine Opiates Screen Not Detected (NotDetected) Ur Oxycodone Screen Not Detected (NotDetected) Urine Methadone Screen Not Detected (NotDetected) Ur Propoxyphene Screen Not Detected (NotDetected) Ur Barbiturates Screen Not Detected (NotDetected) Valproic Acid ug/mL U Tricyclic Antidepress Not Detected (NotDetected) Ur Phencyclidine Scrn Not Detected (NotDetected) Ur Amphetamines Screen Not Detected (NotDetected) U Methamphetamines Scrn Not Detected (NotDetected) U Benzodiazepines Scrn Detected H (NotDetected) Urine Cocaine Screen Not Detected (NotDetected) U Marijuana (THC) Screen Detected H (NotDetected) Serum Alcohol mg/dL Influenza Type A (PCR) (Not Detectd) Influenza Type B (PCR) (Not Detectd) RSV (PCR) (Not Detectd) SARS-CoV-2 (PCR) (Not Detectd) 12/22/22 12/22/22 Range/Units 15:35 18:18 WBC (3.8-10.6) k/uL RBC (3.80-5.40) m/uL Hgb (11.4-16.0) gm/dL Hct (34.0-46.0) % MCV (80.0-100.0) fL MCH (25.0-35.0) pg MCHC (31.0-37.0) g/dL RDW (11.5-15.5) % Plt Count (150-450) k/uL MPV Neutrophils % % Lymphocytes % % Monocytes % % Eosinophils % % Basophils % % Neutrophils # (1.3-7.7) k/uL Lymphocytes # (1.0-4.8) k/uL Monocytes # (0-1.0) k/uL Eosinophils # (0-0.7) k/uL Basophils # (0-0.2) k/uL PT (9.0-12.0) sec INR (<1.2) APTT (22.0-30.0) sec D-Dimer (<0.60) mg/L FEU Sodium (137-145) mmol/L Potassium (3.5-5.1) mmol/L Chloride (98-107) mmol/L Carbon Dioxide (22-30) mmol/L Anion Gap mmol/L BUN (7-17) mg/dL Creatinine (0.52-1.04) mg/dL Est GFR (CKD-EPI)AfAm (>60 ml/min/1.73 sqM) Est GFR (CKD-EPI)NonAf (>60 ml/min/1.73 sqM) Glucose (74-99) mg/dL Plasma Lactic Acid Patel (0.7-2.0) mmol/L Calcium (8.4-10.2) mg/dL Total Bilirubin (0.2-1.3) mg/dL AST (14-36) U/L ALT (4-34) U/L Alkaline Phosphatase (38-126) U/L Creatine Kinase (30-135) U/L Troponin I (0.000-0.034) ng/mL Total Protein (6.3-8.2) g/dL Albumin (3.5-5.0) g/dL HCG, Qual Urine Color Light Yellow Urine Appearance Clear (Clear) Urine pH 7.0 (5.0-8.0) Ur Specific Sinclair 1.015 (1.001-1.035) Urine Protein Negative (Negative) Urine Glucose (UA) Negative (Negative) Urine Ketones Negative (Negative) Urine Blood Negative (Negative) Urine Nitrite Negative (Negative) Urine Bilirubin Negative (Negative) Urine Urobilinogen <2.0 (<2.0) mg/dL Ur Leukocyte Esterase Negative (Negative) Urine Opiates Screen (NotDetected) Ur Oxycodone Screen (NotDetected) Urine Methadone Screen (NotDetected) Ur Propoxyphene Screen (NotDetected) Ur Barbiturates Screen (NotDetected) Valproic Acid ug/mL U Tricyclic Antidepress (NotDetected) Ur Phencyclidine Scrn (NotDetected) Ur Amphetamines Screen (NotDetected) U Methamphetamines Scrn (NotDetected) U Benzodiazepines Scrn (NotDetected) Urine Cocaine Screen (NotDetected) U Marijuana (THC) Screen (NotDetected) Serum Alcohol mg/dL Influenza Type A (PCR) Not Detected (Not Detectd) Influenza Type B (PCR) Not Detected (Not Detectd) RSV (PCR) Not Detected (Not Detectd) SARS-CoV-2 (PCR) Not Detected (Not Detectd) - Radiology Data Radiology results: report reviewed, image reviewed Disposition Clinical Impression: Altered mental status Disposition: HOME SELF-CARE Instructions (If sedation given, give patient instructions): Altered Mental Status (ED) Additional Instructions: Return to the emergency department with any new, worsening, or concerning symptoms. Contact her neurologist Sunday morning for a follow-up appointment. Follow up with your primary care provider in 1-2 days. Is patient prescribed a controlled substance at d/c from ED?: No Referrals: Heber Kumar MD [Primary Care Provider] - 1-2 days
[2022-12-22 16:53] LABS: Basophils % (A) 1 %; Eosinophils # (A) 0.2 k/uL (0-0.7); Eosinophils % (A) 3 %; HCT 48.1 % (34.0-46.0); HGB 15.9 gm/dL (11.4-16.0); Lymphocytes # (A) 1.9 k/uL (1.0-4.8); Lymphocytes % (A) 30 %; MCH 31.7 pg (25.0-35.0); MCV 96.2 fL (80.0-100.0); Monocytes # (A) 0.3 k/uL (0-1.0); Monocytes % (A) 5 %; Neutrophils # (A) 3.6 k/uL (1.3-7.7); Neutrophils % (A) 58 %; Platelet Count 242 k/uL (150-450); RDW 13.9 % (11.5-15.5); WBC 6.2 k/uL (3.8-10.6)
[2022-12-22 17:12] LABS: HCG,Qualitative Serum Not Detected
[2022-12-22 17:14] LABS: ALT 15 U/L (4-34); AST 24 U/L (14-36); African American GFR (CKD) >90 (>60 ml/min/1.73 sqM); Albumin 4.3 g/dL (3.5-5.0); Alcohol <10 mg/dL; Alkaline Phosphatase 48 U/L (38-126); Anion Gap 12 mmol/L; Blood Urea Nitrogen 10 mg/dL (7-17); Calcium 9.3 mg/dL (8.4-10.2); Carbon Dioxide 20 mmol/L (22-30); Chloride 115 mmol/L (98-107); Creatine Kinase 128 U/L (30-135); Glucose 84 mg/dL (74-99); Non-African American GFR(CKD) >90 (>60 ml/min/1.73 sqM); Sodium 147 mmol/L (137-145); Total Bilirubin 0.4 mg/dL (0.2-1.3); Total Protein 7.6 g/dL (6.3-8.2)
[2022-12-22 17:19] LABS: INR 1.1 (<1.2); Partial Thromboplastin Time 24.3 sec (22.0-30.0); Prothrombin Time 11.2 sec (9.0-12.0); Valproic Acid (Depakene) 26.7 ug/mL
--- NOTE | 2022-12-22 17:39 | XR ---
EXAMINATION TYPE: XR chest 2V DATE OF EXAM: 12/22/2022 5:06 PM CLINICAL INDICATION:Female, 27 years old with history of difficulty breathing; [facility] COMPARISON: Chest radiographs from 10/01/2022 TECHNIQUE: XR chest 2V Frontal and lateral views of the chest. FINDINGS: Lungs/Pleura: Low lung volumes are present. There is no evidence of pleural effusion, focal consolida tion, or pneumothorax. Pulmonary vascularity: Unremarkable. Heart/mediastinum: Cardiomediastinal silhouette is unremarkable. Musculoskeletal: No acute osseous pathology. Other findings: None IMPRESSION: Low lung volumes with a generalized hazy appearance which could represent atelectasis. Correlate for pulmonary edema.
[2022-12-22 18:00] LABS: Potassium 4.6 mmol/L (3.5-5.1)
[2022-12-22 18:25] LABS: Appearance,Urine Clear (Clear); Bilirubin,Urine Negative (Negative); Blood,Urine Negative (Negative); Color,Urine Light Yellow; Glucose,Urine (UA) Negative (Negative); Ketones,Urine Negative (Negative); Leukocyte Esterase,Urine Negative (Negative); Nitrite,Urine Negative (Negative); Protein,Urine Negative (Negative); Specific Gravity,Urine 1.015 (1.001-1.035); Urobilinogen,Urine <2.0 mg/dL (<2.0)
--- NOTE | 2022-12-22 18:32 | CT ---
EXAMINATION TYPE: CT brain wo con CT DLP: 1151.4 mGycm, Automated exposure control for dose reduction was used. DATE OF EXAM: 12/22/2022 6:13 PM COMPARISON: 09/30/2022. CLINICAL INDICATION:Female, 27 years old with history of altered mental status, Pt woke up from nap w ith AMS, possible seizure during sleep. TECHNIQUE: Brain: Axial CT images of the brain were obtained with coronal and sagittal reformats created and rev iewed. Contrast used: None. Oral contrast used: None. FINDINGS: Brain: Extra-axial spaces: No abnormal extra-axial fluid collections. Ventricular system: Within normal limits Cerebral parenchyma: No acute intraparenchymal hemorrhage or mass effect. The delaney-white junction is well differentiated. Cerebellum: Unremarkable. Mass effect: No evidence of midline shift. Intracranial vasculature: unremarkable Soft tissues: Normal. Calvarium/osseous structures: No depressed skull fracture. Paranasal sinuses and mastoid air cells: Mild scattered paranasal sinus disease. Visualized orbits: Orbital contents are intact. IMPRESSION: No acute intracranial process.
[2022-12-22 18:35] VITALS: RESP 18
[2022-12-22 18:55] LABS: Amphetamine Screen,Urine Not Detected (NotDetected); Barbiturate Screen,Urine Not Detected (NotDetected); Benzodiazepines Screen,Urine Detected (NotDetected); Cocaine Screen,Urine Not Detected (NotDetected); Methadone Screen, Urine Not Detected (NotDetected); Opiate Screen,Urine Not Detected (NotDetected); Oxycodone Screen, Urine Not Detected (NotDetected); Phencyclidine Screen,Urine Not Detected (NotDetected); Tricyclic Antidepressant,Urine Not Detected (NotDetected); Urn Cannabinoid Scrn Detected (NotDetected)
[2022-12-22 19:51] VITALS: BP 101/81; PULSE 89
== END 2022-12-22 20:29 | disposition home or self-care (01) ==
LOC: EC 14:49
DX: R41.82 Altered mental status, unspecified (principal); E11.9 Type 2 diabetes mellitus without complications; I10 Essential (primary) hypertension; G40.909 Epilepsy, unspecified, not intractable, without status epilepticus; E78.5 Hyperlipidemia, unspecified; F31.9 Bipolar disorder, unspecified; Z20.822 Contact with and (suspected) exposure to COVID-19; Z79.4 Long term (current) use of insulin; Z79.84 Long term (current) use of oral hypoglycemic drugs; Z79.899 Other long term (current) drug therapy; Z88.0 Allergy status to penicillin; Z88.6 Allergy status to analgesic agent
CPT/HCPCS: 36415; 93005; 85379; 80164; 80053; 80175; 82550; 83605; 84484; 85025; 85610; 85730; 81003; 84703; 80306; 87636; 71046; 70450; 99285; 96360; G0480; 80320

== ENCOUNTER 2022-12-24 14:07 | Emergency (ER) | payer OTHER ==
[2022-12-24] MEDS ORDERED: SODIUM CHLORIDE 0.9% 1,000 ML IV ONE (14:17)
[2022-12-24 14:44] VITALS: RESP 20; TEMP 98.7
[2022-12-24 15:04] LABS: Basophils % (A) 0 %; Eosinophils # (A) 0.2 k/uL (0-0.7); Eosinophils % (A) 2 %; HGB 16.1 gm/dL (11.4-16.0); Lymphocytes # (A) 1.9 k/uL (1.0-4.8); Lymphocytes % (A) 23 %; MCH 31.8 pg (25.0-35.0); MCHC 32.9 g/dL (31.0-37.0); MCV 96.6 fL (80.0-100.0); Monocytes # (A) 0.5 k/uL (0-1.0); Monocytes % (A) 6 %; Neutrophils # (A) 5.3 k/uL (1.3-7.7); Neutrophils % (A) 66 %; Platelet Count 271 k/uL (150-450); RBC 5.07 m/uL (3.80-5.40); RDW 13.8 % (11.5-15.5); WBC 8.1 k/uL (3.8-10.6)
[2022-12-24 15:19] LABS: INR 1.1 (<1.2); Partial Thromboplastin Time 24.4 sec (22.0-30.0); Prothrombin Time 11.3 sec (9.0-12.0)
--- NOTE | 2022-12-24 15:28 | ED ---
General Adult HPI - General Chief complaint: Seizure Stated complaint: Abd Pain Time Seen by Provider: 12/24/22 14:11 Source: EMS, RN notes reviewed Mode of arrival: EMS Limitations: no limitations - History of Present Illness Initial comments: 27-year-old female with past medical history significant for epilepsy and TBI presents to the emergency department with a chief complaint of possible seizure. History is limited and most of the history is provided by EMS. EMS reports they initially arrived at the scene for a blood glucose check. EMS reports glucose was within normal limits and they were about to leave the scene and the patient had an approximately 3 minutes long history of which she was not responding to verbal commands. Patient quickly returned to baseline level consciousness. Denies biting her tongue or loss of bladder function. - Related Data Home Medications Medication Instructions Recorded Confirmed Albuterol Inhaler [Ventolin Hfa 1 - 2 puff INHALATION RT-Q6H PRN 09/30/2209/30 Inhaler] Empagliflozin [Jardiance] 10 mg PO DAILY 09/30/22 09/30/22 Famotidine 40 mg PO DAILY 09/30/22 09/30/22 Fluticasone Nasal [place] [Flonase 1 spray EA NOSTRIL DAILY 09/30/22 09/30/22 Nasal [place]] Gabapentin [Neurontin] 400 mg PO TID 09/30/22 09/30/22 INSULIN LISPRO (humaLOG) [humaLOG] 3 units SQ TID-W/MEALS 09/30/22 09/30/22 Ibuprofen [Motrin] 800 mg PO QID PRN 09/30/22 09/30/22 LORazepam [Ativan] 0.5 mg PO DAILY PRN 09/30/22 09/30/22 Labetalol [Trandate] 100 mg PO BID 09/30/22 09/30/22 [place] Carbonate ER [Lithobid] 450 mg PO HS 09/30/22 09/30/22 Meloxicam [Mobic] 15 mg PO DAILY 09/30/22 09/30/22 Olanzapine/Samidorphan Malate 1 tab PO HS 09/30/22 09/30/22 [Lybalvi 10-10 mg Tablet] Omeprazole 40 mg PO DAILY 09/30/22 09/30/22 Potassium Chloride ER [K-Dur 10] 10 meq PO DAILY 09/30/22 09/30/22 QUEtiapine [SEROquel] 25 mg PO HS 09/30/22 09/30/22 QUEtiapine [SEROquel] 100 mg PO HS 09/30/22 09/30/22 Rimegepant Sulfate [Nurtec Odt] 75 mg PO DAILY PRN 09/30/22 09/30/22 Topiramate 200 mg PO TID 09/30/22 09/30/22 lamoTRIgine [LaMICtal] See Taper PO DIRECTED 09/30/22 09/30/22 levETIRAcetam [Keppra] 750 mg PO BID 09/30/22 09/30/22 lisinopriL [Zestril] 5 mg PO DAILY 09/30/22 09/30/22 medroxyPROGESTERone [Depo-Provera] 150 mg IM Q90D 09/30/22 09/30/22 tiZANidine [Zanaflex] 2 mg PO Q8HR PRN 09/30/22 09/30/22 Allergies Allergy/AdvReac Type Severity Reaction Status Date / Time acetaminophen [From Tylenol] Allergy Rash/Hives Verified 12/22/22 14:57 duloxetine [From Cymbalta] Allergy Hallucinati Verified 12/24/22 14:39 ons levetiracetam [From Keppra] Allergy Unknown Verified 12/24/22 14:39 Penicillins Allergy Rash/Hives Verified 12/22/22 14:57 Review of Systems ROS Statement: Those systems with pertinent positive or pertinent negative responses have been documented in the HPI. ROS Other: All systems not noted in ROS Statement are negative. Past Medical History Past Medical History: Diabetes Mellitus, Hyperlipidemia, Hypertension, Seizure Disorder Additional Past Medical History / Comment(s): Epilepsy, mitral valve insufficancy, TBI 2013 History of Any Multi-Drug Resistant Organisms: None Reported Past Surgical History: Unable to Obtain Additional Past Surgical History / Comment(s): Tubes in ears when 5 years old Past Anesthesia/Blood Transfusion Reactions: No Reported Reaction Past Psychological History: Bipolar, Depression Smoking Status: Former smoker Past Alcohol Use History: Heavy Past Drug Use History: Marijuana - Past Family History Sister(s) Family Medical History: Asthma Additional Family Medical History / Comment(s): psychological Mother Family Medical History: Dementia Father Family Medical History: Myocardial Infarction ([place]) Additional Family Medical History / Comment(s): passed @ 72 from [place] General Exam - General Exam Comments Initial Comments: General: Alert, in no acute distress Head: atraumatic normocephalic. Eyes PERRL, EOMI intact, mucous membranes moist Respiratory: Lungs clear to auscultation bilaterally Cardiovascular: Heart rate regular rate Abdominal: Soft without guarding or rebound Extremities: Normal inspection with full range of motion and normal capillary refill Neuroogic: alert and oriented 3, CN II-XII intact Skin: warm dry and intact with normal color Limitations: no limitations Course Vital Signs 12/24/22 12/24/22 14:22 18:38 Temperature 98.7 F Pulse Rate 88 90 Respiratory 20 20 Rate Blood Pressure 97/70 106/74 O2 Sat by Pulse 100 100 Oximetry - Reevaluation(s) Reevaluation #1: 12/24/22 16:15: Should reevaluated. Patient complaining of lower back pain. Mild skin breakdown to right gluteal area suspect that this is the cause of her pain. Patient able to transfer from stretcher to come out without difficulty. 12/24/22 17:39 Patient reevaluated. Patient is eating and drinking soda without difficulty. Patient verbalizes that she is feeling better and to be discharged home. EKG Findings - EKG Comments: EKG Findings:: I interpreted the following: EKG performed at 14:56 rate 86 bpm normal sinus rhythm AL interval 190, QRS 88 QT/QTc 381/425 Medical Decision Making - Medical Decision Making Was pt. sent in by a medical professional or institution (, PA, CHIEF INVESTIGATOR, urgent care, hospital, or custodial...) When possible be specific @ -[No] Did you speak to anyone other than the patient for history (EMS, parent, family, police, friend...)? What history was obtained from this source @ -EMS, Guardian Did you review nursing and triage notes (agree or disagree)? Why? @ -[I reviewed and agree with nursing and triage notes] Were old charts reviewed (outside hosp., previous admission, EMS record, old EKG, old radiological studies, urgent care reports/EKG's, custodial records)? Report findings @ -Chart reviewed from 12/22/2022 Differential Diagnosis (chest pain, altered mental status, abdominal pain women, abdominal pain men, vaginal bleeding, weakness, fever, dyspnea, syncope, headache, dizziness, GI bleed, back pain, seizure, CVA, palpatations, mental health, musculoskeletal)? @ -[not applicable] EKG interpreted by me (3pts min.). @ -[As above] X-rays interpreted by me (1pt min.). @ -[None done] CT interpreted by me (1pt min.). @ -[None done] U/S interpreted by me (1pt. min.). @ -[None done] What testing was considered but not performed or refused? (CT, X-rays, U/S, labs)? Why? @ CT and was considered however computed tomography scan unremarkable from 2 days ago What meds were considered but not given or refused? Why? @ -[None] Did you discuss the management of the patient with other professionals (professionals i.e. , PA, CHIEF INVESTIGATOR, lab, RT, psych nurse, social media senior associate, able bodied watchman, teacher, tactical deception plans officer, dependency case manager)? Give summary @ -[No] Was smoking cessation discussed for >3mins.? @ -[No] Was critical care preformed (if so, how long)? @ -[No] Were there social determinants of health that impacted care today? How? (Homelessness, low income, unemployed, alcoholism, drug addiction, transportation, low edu. Level, literacy, decrease access to med. care, fci, rehab)? @ -[No] Was there de-escalation of care discussed even if they declined (Discuss DNR or withdrawal of care, Hospice)? DNR status @ -[No] What co-morbidities impacted this encounter? (DM, HTN, Smoking, COPD, CAD, Cancer, CVA, ARF, Chemo, Hep., AIDS, mental health diagnosis, sleep apnea, morbid obesity)? @ -[None] Was patient admitted / discharged? Hospital course, mention meds given and route, prescriptions, significant lab abnormalities, going to OR and other pertinent info. @ Discharge. This is a pleasant 27-year-old female with a history of seizures who presents the emergency department with possible seizure. Patient had a thorough history and physical exam performed on the ED. Physical exam essentially unremarkable. Patient is alert and oriented 3. Heart rate regular rate and rhythm, lungs clear to auscultation bilaterally abdomen soft and nontender. There are no focal neuro deficits upon exam. Patient able to transfer from the cart to a wheelchair without difficulty. Patient did not have any seizure-like activity during the course of the ED. Patient laboratory studies revealed WBC 8.1, hemoglobin 16.1 coagulation studies unremarkable sodium [id number] BUN 6, creatinine 0.7 point initial glucose 78 Urinalysis negative. HCG negative Patient did not have any seizure-like activity during the course of the ED. Patient was provided [facility] induced with symptomatic improvement. At this time she was vocalizing she would like to be discharged home with her guardian. Return precautions were discussed at length. Case discussed with KRISSY George who agrees with POC Undiagnosed new problem with uncertain prognosis? @ -[No] Drug Therapy requiring intensive monitoring for toxicity (Heparin, Nitro, Insulin, Cardizem)? @ -[No] Were any procedures done? @ -[No] Diagnosis/symptom? @ -Possible seizure Acute, or Chronic, or Acute on Chronic? @ -Acute Uncomplicated (without systemic symptoms) or Complicated (systemic symptoms)? @ -Uncomplicated Side effects of treatment? @ -[No] Exacerbation, Progression, or Severe Exacerbation? @ -[No] Poses a threat to life or bodily function? How? (Chest pain, [place], [place], pneumonia, PE, COPD, DKA, ARF, appy, cholecystitis, CVA, Diverticulitis, Homicidal, Ma icidal, threat to staff... and all critical care pts) @ -Low likelihood - Lab Data Result diagrams: 12/24/22 14:37 12/24/22 15:32 Lab Results 12/24/22 12/24/22 12/24/22 Range/Units 14:37 14:37 15:32 WBC 8.1 (3.8-10.6) k/uL RBC 5.07 (3.80-5.40) m/uL Hgb 16.1 H (11.4-16.0) gm/dL Hct 49.0 H (34.0-46.0) % MCV 96.6 (80.0-100.0) fL MCH 31.8 (25.0-35.0) pg MCHC 32.9 (31.0-37.0) g/dL RDW 13.8 (11.5-15.5) % Plt Count 271 (150-450) k/uL MPV 8.0 Neutrophils % 66 % Lymphocytes % 23 % Monocytes % 6 % Eosinophils % 2 % Basophils % 0 % Neutrophils # 5.3 (1.3-7.7) k/uL Lymphocytes # 1.9 (1.0-4.8) k/uL Monocytes # 0.5 (0-1.0) k/uL Eosinophils # 0.2 (0-0.7) k/uL Basophils # 0.0 (0-0.2) k/uL PT 11.3 (9.0-12.0) sec INR 1.1 (<1.2) APTT 24.4 (22.0-30.0) sec Sodium 146 H (137-145) mmol/L Potassium 4.0 (3.5-5.1) mmol/L Chloride 117 H (98-107) mmol/L Carbon Dioxide 20 L (22-30) mmol/L Anion Gap 9 mmol/L BUN 6 L (7-17) mg/dL Creatinine 0.70 (0.52-1.04) mg/dL Est GFR (CKD-EPI)AfAm >90 (>60 ml/min/1.73 sqM) Est GFR (CKD-EPI)NonAf >90 (>60 ml/min/1.73 sqM) Glucose 78 (74-99) mg/dL POC Glucose (mg/dL) (70-110) mg/dL POC Glu Activity Director ID Plasma Lactic Acid Patel (0.7-2.0) mmol/L Calcium 8.4 (8.4-10.2) mg/dL Magnesium 2.2 (1.6-2.3) mg/dL Total Bilirubin 0.3 (0.2-1.3) mg/dL AST 45 H (14-36) U/L ALT 19 (4-34) U/L Alkaline Phosphatase 46 (38-126) U/L Total Protein 6.9 (6.3-8.2) g/dL Albumin 3.9 (3.5-5.0) g/dL HCG, Quant <2.4 mIU/mL Urine Color Urine Appearance (Clear) Urine pH (5.0-8.0) Ur Specific [place] (1.001-1.035) Urine Protein (Negative) Urine Glucose (UA) (Negative) Urine Ketones (Negative) Urine Blood (Negative) Urine Nitrite (Negative) Urine Bilirubin (Negative) Urine Urobilinogen (<2.0) mg/dL Ur Leukocyte Esterase (Negative) Urine HCG, Qual (Not Detectd) 12/24/22 12/24/22 12/24/22 Range/Units 15:32 17:05 17:05 WBC (3.8-10.6) k/uL RBC (3.80-5.40) m/uL Hgb (11.4-16.0) gm/dL Hct (34.0-46.0) % MCV (80.0-100.0) fL MCH (25.0-35.0) pg MCHC (31.0-37.0) g/dL RDW (11.5-15.5) % Plt Count (150-450) k/uL MPV Neutrophils % % Lymphocytes % % Monocytes % % Eosinophils % % Basophils % % Neutrophils # (1.3-7.7) k/uL Lymphocytes # (1.0-4.8) k/uL Monocytes # (0-1.0) k/uL Eosinophils # (0-0.7) k/uL Basophils # (0-0.2) k/uL PT (9.0-12.0) sec INR (<1.2) APTT (22.0-30.0) sec Sodium (137-145) mmol/L Potassium (3.5-5.1) mmol/L Chloride (98-107) mmol/L Carbon Dioxide (22-30) mmol/L Anion Gap mmol/L BUN (7-17) mg/dL Creatinine (0.52-1.04) mg/dL Est GFR (CKD-EPI)AfAm (>60 ml/min/1.73 sqM) Est GFR (CKD-EPI)NonAf (>60 ml/min/1.73 sqM) Glucose (74-99) mg/dL POC Glucose (mg/dL) (70-110) mg/dL POC Glu Activity Director ID Plasma Lactic Acid Patel 0.9 (0.7-2.0) mmol/L Calcium (8.4-10.2) mg/dL Magnesium (1.6-2.3) mg/dL Total Bilirubin (0.2-1.3) mg/dL AST (14-36) U/L ALT (4-34) U/L Alkaline Phosphatase (38-126) U/L Total Protein (6.3-8.2) g/dL Albumin (3.5-5.0) g/dL HCG, Quant mIU/mL Urine Color Light Yellow Urine Appearance Clear (Clear) Urine pH 6.5 (5.0-8.0) Ur Specific [place] 1.016 (1.001-1.035) Urine Protein Negative (Negative) Urine Glucose (UA) Negative (Negative) Urine Ketones Negative (Negative) Urine Blood Negative (Negative) Urine Nitrite Negative (Negative) Urine Bilirubin Negative (Negative) Urine Urobilinogen <2.0 (<2.0) mg/dL Ur Leukocyte Esterase Negative (Negative) Urine HCG, Qual Not Detected (Not Detectd) 12/24/22 Range/Units 17:08 WBC (3.8-10.6) k/uL RBC (3.80-5.40) m/uL Hgb (11.4-16.0) gm/dL Hct (34.0-46.0) % MCV (80.0-100.0) fL MCH (25.0-35.0) pg MCHC (31.0-37.0) g/dL RDW (11.5-15.5) % Plt Count (150-450) k/uL MPV Neutrophils % % Lymphocytes % % Monocytes % % Eosinophils % % Basophils % % Neutrophils # (1.3-7.7) k/uL Lymphocytes # (1.0-4.8) k/uL Monocytes # (0-1.0) k/uL Eosinophils # (0-0.7) k/uL Basophils # (0-0.2) k/uL PT (9.0-12.0) sec INR (<1.2) APTT (22.0-30.0) sec Sodium (137-145) mmol/L Potassium (3.5-5.1) mmol/L Chloride (98-107) mmol/L Carbon Dioxide (22-30) mmol/L Anion Gap mmol/L BUN (7-17) mg/dL Creatinine (0.52-1.04) mg/dL Est GFR (CKD-EPI)AfAm (>60 ml/min/1.73 sqM) Est GFR (CKD-EPI)NonAf (>60 ml/min/1.73 sqM) Glucose (74-99) mg/dL POC Glucose (mg/dL) 89 (70-110) mg/dL POC Glu Activity Director ID Puja Hurst Plasma Lactic Acid [place] (0.7-2.0) mmol/L Calcium (8.4-10.2) mg/dL Magnesium (1.6-2.3) mg/dL Total Bilirubin (0.2-1.3) mg/dL AST (14-36) U/L ALT (4-34) U/L Alkaline Phosphatase (38-126) U/L Total Protein (6.3-8.2) g/dL Albumin (3.5-5.0) g/dL HCG, Quant mIU/mL Urine Color Urine Appearance (Clear) Urine pH (5.0-8.0) Ur Specific [place] (1.001-1.035) Urine Protein (Negative) Urine Glucose (UA) (Negative) Urine Ketones (Negative) Urine Blood (Negative) Urine Nitrite (Negative) Urine Bilirubin (Negative) Urine Urobilinogen (<2.0) mg/dL Ur Leukocyte Esterase (Negative) Urine HCG, Qual (Not Detectd) Disposition Clinical Impression: Seizure Disposition: HOME SELF-CARE Condition: Stable Additional Instructions: Monitor symptoms closely Please return to the nearest emergency department symptoms worsen or persist Is patient prescribed a controlled substance at d/c from ED?: No Referrals: Heber Kumar MD [Primary Care Provider] - 1-2 days Time of Disposition: 18:05
[2022-12-24 15:50] LABS: ALT 19 U/L (4-34); AST 45 U/L (14-36); African American GFR (CKD) >90 (>60 ml/min/1.73 sqM); Albumin 3.9 g/dL (3.5-5.0); Alkaline Phosphatase 46 U/L (38-126); Anion Gap 9 mmol/L; Blood Urea Nitrogen 6 mg/dL (7-17); Calcium 8.4 mg/dL (8.4-10.2); Carbon Dioxide 20 mmol/L (22-30); Chloride 117 mmol/L (98-107); Glucose 78 mg/dL (74-99); Magnesium 2.2 mg/dL (1.6-2.3); Non-African American GFR(CKD) >90 (>60 ml/min/1.73 sqM); Sodium 146 mmol/L (137-145); Total Bilirubin 0.3 mg/dL (0.2-1.3); Total Protein 6.9 g/dL (6.3-8.2)
[2022-12-24 16:08] LABS: HCG,Quantitative Serum <2.4 mIU/mL
[2022-12-24] MEDS ORDERED: IBUPROFEN 600 MG TAB PO STA (16:12)
[2022-12-24 17:10] LABS: Glucose,Whole Blood 89 mg/dL (70-110)
[2022-12-24 17:46] LABS: Appearance,Urine Clear (Clear); Bilirubin,Urine Negative (Negative); Blood,Urine Negative (Negative); Color,Urine Light Yellow; Glucose,Urine (UA) Negative (Negative); Ketones,Urine Negative (Negative); Leukocyte Esterase,Urine Negative (Negative); Nitrite,Urine Negative (Negative); PH, Urine 6.5 (5.0-8.0); Protein,Urine Negative (Negative); Specific Gravity,Urine 1.016 (1.001-1.035); Urobilinogen,Urine <2.0 mg/dL (<2.0)
[2022-12-24 18:45] VITALS: BP 106/74; PULSE 90
== END 2022-12-24 18:44 | disposition home or self-care (01) ==
LOC: EC 14:07
DX: G40.909 Epilepsy, unspecified, not intractable, without status epilepticus (principal); E11.9 Type 2 diabetes mellitus without complications; I10 Essential (primary) hypertension; E78.5 Hyperlipidemia, unspecified; F31.9 Bipolar disorder, unspecified; F12.90 Cannabis use, unspecified, uncomplicated; Z79.4 Long term (current) use of insulin; Z79.84 Long term (current) use of oral hypoglycemic drugs; Z79.899 Other long term (current) drug therapy; Z88.0 Allergy status to penicillin; Z88.6 Allergy status to analgesic agent; Z88.8 Allergy status to other drugs, medicaments and biological substances; Z87.891 Personal history of nicotine dependence
CPT/HCPCS: 36415; 80053; 80175; 81003; 81025; 83605; 83735; 84702; 85025; 85610; 85730; 93005; 96360; 99285

== ENCOUNTER 2023-02-02 19:43 | Emergency (ER) | payer OTHER ==
[2023-02-02 20:00] VITALS: TEMP 99
[2023-02-02] MEDS ORDERED: SODIUM CHLORIDE 0.9% 1,000 ML IV STA (20:08)
[2023-02-02 21:51] LABS: Basophils % (A) 0 %; Eosinophils # (A) 0.1 k/uL (0-0.7); Eosinophils % (A) 1 %; HCT 48.1 % (34.0-46.0); HGB 16.5 gm/dL (11.4-16.0); Lymphocytes # (A) 2.1 k/uL (1.0-4.8); Lymphocytes % (A) 24 %; MCH 31.8 pg (25.0-35.0); MCHC 34.3 g/dL (31.0-37.0); MCV 92.7 fL (80.0-100.0); Mean Platelet Volume 8.3; Monocytes # (A) 0.4 k/uL (0-1.0); Monocytes % (A) 4 %; Neutrophils # (A) 6.1 k/uL (1.3-7.7); Neutrophils % (A) 69 %; Platelet Count 260 k/uL (150-450); RBC 5.19 m/uL (3.80-5.40); RDW 12.7 % (11.5-15.5); WBC 8.9 k/uL (3.8-10.6)
[2023-02-02 21:55] LABS: Appearance,Urine Clear (Clear); Bilirubin,Urine Negative (Negative); Blood,Urine Negative (Negative); Color,Urine Colorless; Glucose,Urine (UA) Negative (Negative); Ketones,Urine Negative (Negative); Leukocyte Esterase,Urine Negative (Negative); Nitrite,Urine Negative (Negative); Protein,Urine Negative (Negative); Specific Gravity,Urine 1.008 (1.001-1.035); Urobilinogen,Urine <2.0 mg/dL (<2.0)
[2023-02-02 22:06] LABS: Amphetamine Screen,Urine Not Detected (NotDetected); Barbiturate Screen,Urine Not Detected (NotDetected); Benzodiazepines Screen,Urine Not Detected (NotDetected); Cocaine Screen,Urine Not Detected (NotDetected); Methadone Screen, Urine Not Detected (NotDetected); Opiate Screen,Urine Not Detected (NotDetected); Oxycodone Screen, Urine Not Detected (NotDetected); Phencyclidine Screen,Urine Not Detected (NotDetected); Tricyclic Antidepressant,Urine Not Detected (NotDetected); Urn Cannabinoid Scrn Not Detected (NotDetected)
[2023-02-02 22:16] LABS: ALT 27 U/L (4-34); AST 27 U/L (14-36); African American GFR (CKD) >90 (>60 ml/min/1.73 sqM); Albumin 4.9 g/dL (3.5-5.0); Alkaline Phosphatase 52 U/L (38-126); Anion Gap 15 mmol/L; Blood Urea Nitrogen 12 mg/dL (7-17); Calcium 9.5 mg/dL (8.4-10.2); Carbon Dioxide 20 mmol/L (22-30); Chloride 109 mmol/L (98-107); Glucose 85 mg/dL (74-99); Lithium <0.2 mmol/L; Magnesium 2.1 mg/dL (1.6-2.3); Non-African American GFR(CKD) >90 (>60 ml/min/1.73 sqM); Potassium 3.8 mmol/L (3.5-5.1); Sodium 144 mmol/L (137-145); Total Bilirubin 0.4 mg/dL (0.2-1.3); Total Protein 8.4 g/dL (6.3-8.2)
--- NOTE | 2023-02-02 23:42 | ED ---
Seizure HPI - General Chief Complaint: Seizure Stated Complaint: Seizure Time Seen by Provider: 02/02/23 20:03 Source: EMS Mode of arrival: EMS - History of Present Illness Initial Comments: 27-year-old female with history of seizure disorder, diabetes, hypertension, hyperlipidemia presenting with chief complaint of seizure. Patient states that her caregiver called EMS because she had a seizure that was 3 minutes long which is longer than her usual seizures. Caregiver gave Valtoco nasal spray. Patient was lying in bed in did not hit her head. She states that she feels generally fatigued. No chest pain, difficulty breathing, abdominal pain, numbness, tingling, weakness, vomiting. - Related Data Home Medications Medication Instructions Recorded Confirmed Albuterol Inhaler [Ventolin Hfa 1 - 2 puff INHALATION RT-Q6H PRN 09/30/22 09/30/22 Inhaler] Empagliflozin [Jardiance] 10 mg PO DAILY 09/30/22 09/30/22 Famotidine 40 mg PO DAILY 09/30/22 09/30/22 Fluticasone Nasal [place] [Flonase 1 spray EA NOSTRIL DAILY 09/30/22 09/30/22 Nasal [place]] Gabapentin [Neurontin] 400 mg PO TID 09/30/22 09/30/22 INSULIN LISPRO (humaLOG) [humaLOG] 3 units SQ TID-W/MEALS 09/30/22 09/30/22 Ibuprofen [Motrin] 800 mg PO QID PRN 09/30/22 09/30/22 LORazepam [Ativan] 0.5 mg PO DAILY PRN 09/30/22 09/30/22 Labetalol [Trandate] 100 mg PO BID 09/30/22 09/30/22 [place] Carbonate ER [Lithobid] 450 mg PO HS 09/30/22 09/30/22 Meloxicam [Mobic] 15 mg PO DAILY 09/30/22 09/30/22 Olanzapine/Samidorphan Malate 1 tab PO HS 09/30/22 09/30/22 [Lybalvi 10-10 mg Tablet] Omeprazole 40 mg PO DAILY 09/30/22 09/30/22 Potassium Chloride ER [K-Dur 10] 10 meq PO DAILY 09/30/22 09/30/22 QUEtiapine [SEROquel] 25 mg PO HS 09/30/22 09/30/22 QUEtiapine [SEROquel] 100 mg PO HS 09/30/22 09/30/22 Rimegepant Sulfate [Nurtec Odt] 75 mg PO DAILY PRN 09/30/22 09/30/22 Topiramate 200 mg PO TID 09/30/22 09/30/22 lamoTRIgine [LaMICtal] See Taper PO DIRECTED 09/30/22 09/30/22 levETIRAcetam [Keppra] 750 mg PO BID 09/30/22 09/30/22 lisinopriL [Zestril] 5 mg PO DAILY 09/30/22 09/30/22 medroxyPROGESTERone [Depo-Provera] 150 mg IM Q90D 09/30/22 09/30/22 tiZANidine [Zanaflex] 2 mg PO Q8HR PRN 09/30/22 09/30/22 Allergies Allergy/AdvReac Type Severity Reaction Status Date / Time acetaminophen [From Tylenol] Allergy Rash/Hives Verified 02/02/23 19:56 duloxetine [From Cymbalta] Allergy Hallucinati Verified 02/02/23 19:56 ons levetiracetam [From Keppra] Allergy Unknown Verified 02/02/23 19:56 Penicillins Allergy Rash/Hives Verified 02/02/23 19:56 Review of Systems ROS Statement: Those systems with pertinent positive or pertinent negative responses have been documented in the HPI. ROS Other: All systems not noted in ROS Statement are negative. Past Medical History Past Medical History: Diabetes Mellitus, Hyperlipidemia, Hypertension, Seizure Disorder Additional Past Medical History / Comment(s): Epilepsy, mitral valve insufficancy, TBI 2012 History of Any Multi-Drug Resistant Organisms: None Reported Past Surgical History: Unable to Obtain Additional Past Surgical History / Comment(s): Tubes in ears when 5 years old Past Anesthesia/Blood Transfusion Reactions: No Reported Reaction Past Psychological History: Bipolar, Depression Smoking Status: Former smoker Past Alcohol Use History: Heavy Past Drug Use History: Marijuana - Past Family History Sister(s) Family Medical History: Asthma Additional Family Medical History / Comment(s): psychological Mother Family Medical History: Dementia Father Family Medical History: Myocardial Infarction ([place]) Additional Family Medical History / Comment(s): passed @ 72 from [place] General Exam General appearance: alert, in no apparent distress Head exam: Present: atraumatic, normocephalic, normal inspection Eye exam: Present: normal appearance, PERRL, EOMI. Absent: scleral icterus, conjunctival injection, periorbital swelling Neck exam: Present: normal inspection, full ROM Respiratory exam: Present: normal lung sounds bilaterally. Absent: respiratory distress, wheezes, rales, rhonchi, stridor Cardiovascular Exam: Present: regular rate, normal rhythm, normal heart sounds. Absent: systolic murmur, diastolic murmur, rubs, gallop, clicks Neurological exam: Present: alert, oriented X3 Expanded Speech: Present: fluid speech Cranial nerves: EOM's Intact: Normal Motor strength exam: RUE: 5, LUE: 5, RLE: 5, LLE: 5 Eye Response: (4) open spontaneously Motor Response: (6) obeys commands Verbal Response: (5) oriented Tahira Total: 15 Psychiatric exam: Present: normal affect, normal mood Skin exam: Present: warm, dry, intact, normal color. Absent: rash Course Vital Signs 02/02/23 02/03/23 19:50 00:02 Temperature 99.0 F Pulse Rate 102 H 95 Respiratory 20 18 Rate Blood Pressure 115/81 118/77 O2 Sat by Pulse 100 98 Oximetry Medical Decision Making - Medical Decision Making Was pt. sent in by a medical professional or institution ([facility], [employer], urgent care, hospital, or snf...) When possible be specific @ -No Did you speak to anyone other than the patient for history (EMS, parent, family, police, friend...)? What history was obtained from this source @ -Caregiver Did you review nursing and triage notes (agree or disagree)? Why? @ -I reviewed and agree with nursing and triage notes Were old charts reviewed (outside hosp., previous admission, EMS record, old EKG, old radiological studies, urgent care reports/EKG's, snf records)? Report findings @ -No old charts were reviewed Differential Diagnosis (chest pain, altered mental status, abdominal pain women, abdominal pain men, vaginal bleeding, weakness, fever, dyspnea, syncope, headache, dizziness, GI bleed, back pain, seizure, CVA, palpatations, mental health, musculoskeletal)? @ -MDM Differential Seizure: Recurrent seizure disorder, febrile seizure, alcohol withdrawal, stimulants, men ingitis, encephalitis, intercranial hemorrhage, intracranial tumor, stroke, eclampsia, thyrotoxicosis, hypocalcemia, hyponatremia, hypernatremia, hypomagnesemia, psychogenic this is not meant to be an all-inclusive list EKG interpreted by me (3pts min.). @ -As above X-rays interpreted by me (1pt min.). @ -None done CT interpreted by me (1pt min.). @ -None done U/S interpreted by me (1pt. min.). @ -None done What testing was considered but not performed or refused? (CT, X-rays, U/S, labs)? Why? @ -None What meds were considered but not given or refused? Why? @ -None Did you discuss the management of the patient with other professionals (marcella saucedo i.e. , PA, [employer], lab, RT, psych nurse, director social, engraver automatic, teacher, chief security officer, comp field case manager)? Give summary @ -No Was smoking cessation discussed for >3mins.? @ -No Was critical care preformed (if so, how long)? @ -No Were there social determinants of health that impacted care today? How? (Homelessness, low income, unemployed, alcoholism, drug addiction, transportatio n, low edu. Level, literacy, decrease access to med. care, intermediate, rehab)? @ -No Was there de-escalation of care discussed even if they declined (Discuss DNR or withdrawal of care, Hospice)? DNR status @ -No What co-morbidities impacted this encounter? (DM, HTN, Smoking, COPD, CAD, Cancer, CVA, ARF, Chemo, Hep., AIDS, mental health diagnosis, sleep apnea, morbid obesity)? @ -Seizure disorder Was patient admitted / discharged? Hospital course, mention meds given and route, prescriptions, significant lab abnormalities, going to OR and other pertinent info. @ -27-year-old female presenting with chief complaint of seizure. Patient has history of seizures. She has returned to her baseline. History and physical exam were conducted. Lab work requires no action. On reassessment patient is resting comfortably showed no acute signs of distress. She'll be discharged home and is instructed to follow-up with her neurologist. Caregiver is comfortable with discharge home today. Follow-up with PCP. Report back to ER with any new or worsening symptoms. Discussed return parameters and answered all questions. Patient conveyed verbal understanding and agreed to the plan. I discussed this case in detail with my attending Dr. Frank Undiagnosed new problem with uncertain prognosis? @ -No Drug Therapy requiring intensive monitoring for toxicity (Heparin, Nitro, Insulin, Cardizem)? @ -No Were any procedures done? @ -No Diagnosis/symptom? @ -Seizure disorder Acute, or Chronic, or Acute on Chronic? @ -Acute on chronic Uncomplicated (without systemic symptoms) or Complicated (systemic symptoms)? @ -Uncomplicated Side effects of treatment? @ -No Exacerbation, Progression, or Severe Exacerbation? @ -No Poses a threat to life or bodily function? How? (Chest pain, [place], [place], pneumonia, PE, COPD, DKA, ARF, appy, cholecystitis, CVA, Diverticulitis, Homicidal, Suicidal, threat to staff... and all critical care pts) @ -No - Lab Data Result diagrams: 02/02/23 21:10 02/02/23 21:10 Lab Results 02/02/23 02/02/23 02/02/23 Range/Units 21:10 21:10 21:10 WBC 8.9 (3.8-10.6) k/uL RBC 5.19 (3.80-5.40) m/uL Hgb 16.5 H (11.4-16.0) gm/dL Hct 48.1 H (34.0-46.0) % MCV 92.7 (80.0-100.0) fL MCH 31.8 (25.0-35.0) pg MCHC 34.3 (31.0-37.0) g/dL RDW 12.7 (11.5-15.5) % Plt Count 260 (150-450) k/uL MPV 8.3 Neutrophils % 69 % Lymphocytes % 24 % Monocytes % 4 % Eosinophils % 1 % Basophils % 0 % Neutrophils # 6.1 (1.3-7.7) k/uL Lymphocytes # 2.1 (1.0-4.8) k/uL Monocytes # 0.4 (0-1.0) k/uL Eosinophils # 0.1 (0-0.7) k/uL Basophils # 0.0 (0-0.2) k/uL Sodium 144 (137-145) mmol/L Potassium 3.8 (3.5-5.1) mmol/L Chloride 109 H (98-107) mmol/L Carbon Dioxide 20 L (22-30) mmol/L Anion Gap 15 mmol/L BUN 12 (7-17) mg/dL Creatinine 0.68 (0.52-1.04) mg/dL Est GFR (CKD-EPI)AfAm >90 (>60 ml/min/1.73 sqM) Est GFR (CKD-EPI)NonAf >90 (>60 ml/min/1.73 sqM) Glucose 85 (74-99) mg/dL Calcium 9.5 (8.4-10.2) mg/dL Magnesium 2.1 (1.6-2.3) mg/dL Total Bilirubin 0.4 (0.2-1.3) mg/dL AST 27 (14-36) U/L ALT 27 (4-34) U/L Alkaline Phosphatase 52 (38-126) U/L Total Protein 8.4 H (6.3-8.2) g/dL Albumin 4.9 (3.5-5.0) g/dL Urine Color Colorless Urine Appearance Clear (Clear) Urine pH 7.0 (5.0-8.0) Ur Specific [place] 1.008 (1.001-1.035) Urine Protein Negative (Negative) Urine Glucose (UA) Negative (Negative) Urine Ketones Negative (Negative) Urine Blood Negative (Negative) Urine Nitrite Negative (Negative) Urine Bilirubin Negative (Negative) Urine Urobilinogen <2.0 (<2.0) mg/dL Ur Leukocyte Esterase Negative (Negative) Urine Opiates Screen Not Detected (NotDetected) Ur Oxycodone Screen Not Detected (NotDetected) Urine Methadone Screen Not Detected (NotDetected) Ur Propoxyphene Screen Not Detected (NotDetected) Ur Barbiturates Screen Not Detected (NotDetected) U Tricyclic Antidepress Not Detected (NotDetected) Ur Phencyclidine Scrn Not Detected (NotDetected) Ur Amphetamines Screen Not Detected (NotDetected) U Methamphetamines Scrn Not Detected (NotDetected) U Benzodiazepines Scrn Not Detected (NotDetected) [place] <0.2 mmol/L Urine Cocaine Screen Not Detected (NotDetected) U Marijuana (THC) Screen Not Detected (NotDetected) Disposition Clinical Impression: Seizure Disposition: HOME SELF-CARE Condition: Good Instructions (If sedation given, give patient instructions): Recurrent Seizures in Adults (ED) Additional Instructions: Follow-up with PCP and neurologist. Report back to ER with any new or worsening symptoms. Is patient prescribed a controlled substance at d/c from ED?: No Referrals: Heber Kumar MD [Primary Care Provider] - 1-2 days Time of Disposition: 23:42
[2023-02-03 00:11] VITALS: BP 118/77; PULSE 95; RESP 18
[2023-02-05 06:19] LABS: Topiramate 17.5 ug/mL (2.0-20.0)
[2023-02-05 06:48] LABS: Levetiracetam (Keppra) <1.0 ug/mL (3.0-60.0)
[2023-02-05 13:48] LABS: Lamotrigine (Lamictal) <0.2 ug/mL (2.0-15.0)
== END 2023-02-03 00:03 | disposition home or self-care (01) ==
LOC: EC 19:43
DX: G40.909 Epilepsy, unspecified, not intractable, without status epilepticus (principal); E11.9 Type 2 diabetes mellitus without complications; I10 Essential (primary) hypertension; F31.9 Bipolar disorder, unspecified; F12.90 Cannabis use, unspecified, uncomplicated; Z87.891 Personal history of nicotine dependence; Z79.84 Long term (current) use of oral hypoglycemic drugs; Z79.4 Long term (current) use of insulin; Z79.899 Other long term (current) drug therapy; Z88.0 Allergy status to penicillin; Z88.8 Allergy status to other drugs, medicaments and biological substances; Z88.6 Allergy status to analgesic agent
CPT/HCPCS: 36415; 80053; 80175; 80177; 80178; 80201; 80306; 81003; 83735; 85025; 96360; 99284

== ENCOUNTER 2023-02-20 19:05 | Emergency (ER) | payer OTHER ==
[2023-02-20 19:25] VITALS: RESP 18; TEMP 98.4
[2023-02-20 20:01] LABS: Color,Urine Yellow
[2023-02-20 20:02] LABS: Appearance,Urine Cloudy (Clear); Bilirubin,Urine Negative (Negative); Blood,Urine Negative (Negative); Glucose,Urine (UA) Negative (Negative); Ketones,Urine Negative (Negative); Leukocyte Esterase,Urine Moderate (Negative); Nitrite,Urine Negative (Negative); PH, Urine 6.5 (5.0-8.0); Protein,Urine Negative (Negative); Urobilinogen,Urine <2.0 mg/dL (<2.0)
[2023-02-20 20:05] LABS: Bacteria,Urine Few /hpf; Mucus,Urine Rare /hpf; RBC,Urine 1 /hpf (0-5); Squamous Epithelial Cell,Urine 3 /hpf (0-4); WBC,Urine 5 /hpf (0-5)
[2023-02-20] MEDS ORDERED: ONDANSETRON 4 MG/2 ML VIAL IVP STA (20:20)
[2023-02-20] MEDS ORDERED: SODIUM CHLORIDE 0.9% 1,000 ML IV STA (20:20)
[2023-02-20] MEDS ORDERED: KETOROLAC 15 MG/ML 1 ML VIAL IVP STA (20:20)
[2023-02-20] MEDS ORDERED: MORPHINE SULFATE 2 MG/ML SYRINGE IVP STA (20:20)
--- NOTE | 2023-02-20 20:28 | ED ---
Nausea/Vomiting/Diarrhea HPI - General Chief complaint: Nausea/Vomiting/Diarrhea Stated complaint: N/V/D Time Seen by Provider: 02/20/23 20:10 Source: patient, RN notes reviewed, Caregiver Mode of arrival: wheelchair Limitations: no limitations - History of Present Illness Initial comments: This is a 27-year-old female who presents to the emergency department for nausea, vomiting, diarrhea, and abdominal pain. States that the symptoms started 3 days ago. Her friend, who is also her legal guardian, states that she has been much more sleepy and hard to arouse than normal. She has been taking Zofran at home with no relief in symptoms. She is concerned that she is not getting any better. She is unable to localize the abdominal pain. She last thr ew up shortly before arrival and does still feel nauseous. She has felt hot and wonders if she may have had fevers, but has not measured her temperature specifically. She had a negative home COVID test. MD complaint: nausea, vomiting, diarrhea, abdominal pain - Related Data Home Medications Medication Instructions Recorded Confirmed Albuterol Inhaler [Ventolin Hfa 1 - 2 puff INHALATION RT-Q6H PRN 09/30/22 09/30/22 Inhaler] Empagliflozin [Jardiance] 10 mg PO DAILY 09/30/22 09/30/22 Famotidine 40 mg PO DAILY 09/30/22 09/30/22 Fluticasone Nasal [place] [Flonase 1 spray EA NOSTRIL DAILY 09/30/22 09/30/22 Nasal [place]] Gabapentin [Neurontin] 400 mg PO TID 09/30/22 09/30/22 INSULIN LISPRO (humaLOG) [humaLOG] 3 units SQ TID-W/MEALS 09/30/22 09/30/22 Ibuprofen [Motrin] 800 mg PO QID PRN 09/30/22 09/30/22 LORazepam [Ativan] 0.5 mg PO DAILY PRN 09/30/22 09/30/22 Labetalol [Trandate] 100 mg PO BID 09/30/22 09/30/22 [place] Carbonate ER [Lithobid] 450 mg PO HS 09/30/22 09/30/22 Meloxicam [Mobic] 15 mg PO DAILY 09/30/22 09/30/22 Olanzapine/Samidorphan Malate 1 tab PO HS 09/30/22 09/30/22 [Lybalvi 10-10 mg Tablet] Omeprazole 40 mg PO DAILY 09/30/22 09/30/22 Potassium Chloride ER [K-Dur 10] 10 meq PO DAILY 09/30/22 09/30/22 QUEtiapine [SEROquel] 25 mg PO HS 09/30/22 09/30/22 QUEtiapine [SEROquel] 100 mg PO HS 09/30/22 09/30/22 Rimegepant Sulfate [Nurtec Odt] 75 mg PO DAILY PRN 09/30/22 09/30/22 Topiramate 200 mg PO TID 09/30/22 09/30/22 lamoTRIgine [LaMICtal] See Taper PO DIRECTED 09/30/22 09/30/22 levETIRAcetam [Keppra] 750 mg PO BID 09/30/22 09/30/22 lisinopriL [Zestril] 5 mg PO DAILY 09/30/22 09/30/22 medroxyPROGESTERone [Depo-Provera] 150 mg IM Q90D 09/30/22 09/30/22 tiZANidine [Zanaflex] 2 mg PO Q8HR PRN 09/30/22 09/30/22 Previous Rx's Medication Instructions Recorded Ondansetron Odt [Zofran Odt] 4 mg PO Q8HR PRN #15 tab 02/20/23 Allergies Allergy/AdvReac Type Severity Reaction Status Date / Time acetaminophen [From Tylenol] Allergy Rash/Hives Verified 02/20/23 19:20 duloxetine [From Cymbalta] Allergy Hallucinati Verified 02/20/23 19:20 ons levetiracetam [From Keppra] Allergy Unknown Verified 02/20/23 19:20 Penicillins Allergy Rash/Hives Verified 02/20/23 19:20 Review of Systems ROS Statement: Those systems with pertinent positive or pertinent negative responses have been documented in the HPI. ROS Other: All systems not noted in ROS Statement are negative. Past Medical History Past Medical History: Diabetes Mellitus, Hyperlipidemia, Hypertension, Seizure Disorder Additional Past Medical History / Comment(s): Epilepsy, mitral valve insufficancy, TBI 2013 History of Any Multi-Drug Resistant Organisms: None Reported Past Surgical History: Unable to Obtain Additional Past Surgical History / Comment(s): Tubes in ears when 5 years old Past Anesthesia/Blood Transfusion Reactions: No Reported Reaction Past Psychological History: Bipolar, Depression Smoking Status: Former smoker Past Alcohol Use History: Heavy Past Drug Use History: Marijuana - Past Family History Sister(s) Family Medical History: Asthma Additional Family Medical History / Comment(s): psychological Mother Family Medical History: Dementia Father Family Medical History: Myocardial Infarction ([place]) Additional Family Medical History / Comment(s): passed @ 72 from [place] General Exam Limitations: no limitations General appearance: alert, lethargic Head exam: Present: atraumatic, normocephalic, normal inspection Respiratory exam: Present: normal lung sounds bilaterally. Absent: respiratory distress, wheezes, rales, rhonchi, stridor Cardiovascular Exam: Present: regular rate, normal rhythm, normal heart sounds. Absent: systolic murmur, diastolic murmur, rubs, gallop, clicks GI/Abdominal exam: Present: soft, tenderness (diffuse), normal bowel sounds. Absent: distended Neurological exam: Present: alert, oriented X3, CN II-XII intact Psychiatric exam: Present: normal affect, normal mood Skin exam: Present: warm, dry, intact, normal color. Absent: rash Course Vital Signs 02/20/23 02/21/23 19:20 00:08 Temperature 98.4 F Pulse Rate 114 H 97 Respiratory 18 18 Rate Blood Pressure 105/73 113/72 O2 Sat by Pulse 96 97 Oximetry Medical Decision Making - Medical Decision Making This is a 27-year-old female who presents to the emergency department for abdominal pain, nausea, vomiting, and diarrhea. Was pt. sent in by a medical professional or institution? @ -No Did you speak to anyone other than the patient for history? @ -Her friend and legal guardian provided the majority of the information due to the patient feeling very lethargic and not wanting to answer many questions. Did you review nursing and triage notes? @ -Yes, and I agree, it is accurate with regards to the patient's symptoms. Were old charts reviewed? @ -No Differential Diagnosis? @ -Differential Abdominal Pain Women: Appendicitis, Cholecystitis, diverticulosis, ischemic bowel, pancreatitis, hepatitis, UTI, gastroenteritis, AAA, incarcerated hernia, bowel obstruction, constipation, inflammatory bowel, hepatitis, peptic ulcer disease, splenic infar ction, perforated viscus, vulvitis, ovarian torsion, PID, kidney stone, placenta abruption, this is not meant to be an all-inclusive list EKG interpreted by me (3pts min.)? @ -Not obtained X-rays interpreted by me (1pt min.)? @ -Not obtained CT interpreted by me (1pt min.)? @ -CT scan of the abdomen and pelvis obtained. My interpretation identifies no evidence of bowel wall thickening or free air. U/S interpreted by me (1pt. min.)? @ -Not obtained What testing was considered but not performed? (CT, X-rays, U/S, labs)? Why? @ -None What meds were considered but not given? Why? @ -None Did you discuss the management of the patient with other professionals? @ -No Did you reconcile home meds? @ -No Was smoking cessation discussed for >3mins.? @ -No Was critical care preformed (if so, how long)? @ -No Were there social determinants of health that impacted care today? How? (Homelessness, low income, unemployed, alcoholism, drug addiction, transportation, low edu. Level, literacy, decrease access to med. care, alf, rehab)? @ -No Was there de-escalation of care discussed even if they declined? (Discuss DNR or withdrawal of care, Hospice)? @ -No What co-morbidities impacted this encounter? (DM, HTN, Smoking, COPD, CAD, Cancer, CVA, Hep., AIDS, mental health diagnosis, sleep apnea, morbid obesity)? @ -DM, HTN, HLD, seizure disorder Was patient admitted / discharged? @ -Discharged. Lab work obtained and found to be unremarkable. Urinalysis negative for signs of infection. Covid, influenza, and RSV testing were negative. Computed tomography scan of the abdomen and pelvis obtained revealing no acute process. There is a right adrenal mass that is redemonstrated from September 2022 and is stable in appearance. Her symptoms were well controlled in the emergency department, and states that she felt hungry and requested discharge home. Prescription for Zofran provided with dosing instructions reviewed. Also discussed [id number] Imodium as needed for diarrhea. Otherwise advised she slowly advance her diet as tolerated and remain well-hydrated. Patient discharged home in stable condition and advised to follow-up with her primary care provider. Undiagnosed new problem with uncertain prognosis? @ -None Drug Therapy requiring intensive monitoring for toxicity (Heparin, Nitro, Insul in, Cardizem)? @ -None Were any procedures done? @ -None Diagnosis/symptom? @ -Abdominal pain, N/V/D Acute, or Chronic, or Acute on Chronic? @ -Acute Uncomplicated (without systemic symptoms) or Complicated (systemic symptoms)? @ -Uncomplicated Side effects of treatment? @ -None Exacerbation, Progression, or Severe Exacerbation] @ -Not applicable Poses a threat to life or bodily function? @ -No Return precautions reviewed in depth, the patient is instructed to return to the emergency department with any new, worsening, or concerning symptoms. Patient verbalized understanding. This case was discussed in detail with the attending ED physician, Dr. Ruiz. Presentation, findings, and treatment plan discussed in detail as well. - Lab Data Result diagrams: 02/20/23 20:01 02/20/23 20:01 Lab Results 02/20/23 02/20/23 02/20/23 Range/Units 19:34 20:01 20:01 WBC (3.8-10.6) k/uL RBC (3.80-5.40) m/uL Hgb (11.4-16.0) gm/dL Hct (34.0-46.0) % MCV (80.0-100.0) fL MCH (25.0-35.0) pg MCHC (31.0-37.0) g/dL RDW (11.5-15.5) % Plt Count (150-450) k/uL MPV Neutrophils % % Lymphocytes % % Monocytes % % Eosinophils % % Basophils % % Neutrophils # (1.3-7.7) k/uL Lymphocytes # (1.0-4.8) k/uL Monocytes # (0-1.0) k/uL Eosinophils # (0-0.7) k/uL Basophils # (0-0.2) k/uL Sodium (137-145) mmol/L Potassium (3.5-5.1) mmol/L Chloride (98-107) mmol/L Carbon Dioxide (22-30) mmol/L Anion Gap mmol/L BUN (7-17) mg/dL Creatinine (0.52-1.04) mg/dL Est GFR (CKD-EPI)AfAm (>60 ml/min/1.73 sqM) Est GFR (CKD-EPI)NonAf (>60 ml/min/1.73 sqM) Glucose (74-99) mg/dL Plasma Lactic Acid Patel (0.7-2.0) mmol/L Calcium (8.4-10.2) mg/dL Magnesium (1.6-2.3) mg/dL Total Bilirubin (0.2-1.3) mg/dL AST (14-36) U/L ALT (4-34) U/L Alkaline Phosphatase (38-126) U/L Total Protein (6.3-8.2) g/dL Albumin (3.5-5.0) g/dL Amylase (30-110) U/L Lipase (23-300) U/L Urine Color Yellow Urine Appearance Cloudy H (Clear) Urine pH 6.5 (5.0-8.0) Ur Specific [place] 1.020 (1.001-1.035) Urine Protein Negative (Negative) Urine Glucose (UA) Negative (Negative) Urine Ketones Negative (Negative) Urine Blood Negative (Negative) Urine Nitrite Negative (Negative) Urine Bilirubin Negative (Negative) Urine Urobilinogen <2.0 (<2.0) mg/dL Ur Leukocyte Esterase Moderate (Negative) Urine RBC 1 (0-5) /hpf Urine WBC 5 (0-5) /hpf Ur Squamous Epith Cells 3 (0-4) /hpf Urine Bacteria Few H (None) /hpf Urine Mucus Rare H (None) /hpf Urine HCG, Qual Not Detected (Not Detectd) Influenza Type A (PCR) Not Detected (Not Detectd) Influenza Type B (PCR) Not Detected (Not Detectd) RSV (PCR) Not Detected (Not Detectd) SARS-CoV-2 (PCR) Not Detected (Not Detectd) 02/20/23 02/20/23 02/20/23 Range/Units 20:01 20:01 20:01 WBC 8.4 (3.8-10.6) k/uL RBC 4.70 (3.80-5.40) m/uL Hgb 14.8 (11.4-16.0) gm/dL Hct 43.4 (34.0-46.0) % MCV 92.2 (80.0-100.0) fL MCH 31.5 (25.0-35.0) pg MCHC 34.1 (31.0-37.0) g/dL RDW 12.3 (11.5-15.5) % Plt Count 265 (150-450) k/uL MPV 8.0 Neutrophils % 62 % Lymphocytes % 30 % Monocytes % 5 % Eosinophils % 1 % Basophils % 1 % Neutrophils # 5.2 (1.3-7.7) k/uL Lymphocytes # 2.5 (1.0-4.8) k/uL Monocytes # 0.4 (0-1.0) k/uL Eosinophils # 0.1 (0-0.7) k/uL Basophils # 0.0 (0-0.2) k/uL Sodium 144 (137-145) mmol/L Potassium 3.8 (3.5-5.1) mmol/L Chloride 112 H (98-107) mmol/L Carbon Dioxide 16 L (22-30) mmol/L Anion Gap 16 mmol/L BUN 9 (7-17) mg/dL Creatinine 0.67 (0.52-1.04) mg/dL Est GFR (CKD-EPI)AfAm >90 (>60 ml/min/1.73 sqM) Est GFR (CKD-EPI)NonAf >90 (>60 ml/min/1.73 sqM) Glucose 90 (74-99) mg/dL Plasma Lactic Acid [place] 0.6 L (0.7-2.0) mmol/L Calcium 9.8 (8.4-10.2) mg/dL Magnesium 2.3 (1.6-2.3) mg/dL Total Bilirubin 0.4 (0.2-1.3) mg/dL AST 18 (14-36) U/L ALT 20 (4-34) U/L Alkaline Phosphatase 49 (38-126) U/L Total Protein 7.9 (6.3-8.2) g/dL Albumin 4.6 (3.5-5.0) g/dL Amylase 70 (30-110) U/L Lipase 227 (23-300) U/L Urine Color Urine Appearance (Clear) Urine pH (5.0-8.0) Ur Specific [place] (1.001-1.035) Urine Protein (Negative) Urine Glucose (UA) (Negative) Urine Ketones (Negative) Urine Blood (Negative) Urine Nitrite (Negative) Urine Bilirubin (Negative) Urine Urobilinogen (<2.0) mg/dL Ur Leukocyte Esterase (Negative) Urine RBC (0-5) /hpf Urine WBC (0-5) /hpf Ur Squamous Epith Cells (0-4) /hpf Urine Bacteria (None) /hpf Urine Mucus (None) /hpf Urine HCG, Qual (Not Detectd) Influenza Type A (PCR) (Not Detectd) Influenza Type B (PCR) (Not Detectd) RSV (PCR) (Not Detectd) SARS-CoV-2 (PCR) (Not Detectd) - Radiology Data Radiology results: report reviewed, image reviewed Disposition Clinical Impression: Abdominal pain, Nausea and vomiting, Diarrhea Disposition: HOME SELF-CARE Instructions (If sedation given, give patient instructions): Acute Nausea and Vomiting (ED), Acute Diarrhea (ED), Abdominal Pain (ED) Additional Instructions: Return to the emergency department with any new, worsening, or concerning symptoms. You can take the Zofran up to every 8 hours as needed for nausea and vomiting. You can take [id number] Imodium as needed for the diarrhea. Slowly advance your diet as tolerated and remain well-hydrated. Follow up with your primary care provider in 1-2 days. Prescriptions: Ondansetron Odt [Zofran Odt] 4 mg PO Q8HR PRN #15 tab PRN Reason: Nausea And Vomiting Is patient prescribed a controlled substance at d/c from ED?: No Referrals: Heber Kumar MD [Primary Care Provider] - 1-2 days
[2023-02-20 21:40] LABS: Basophils % (A) 1 %; Eosinophils # (A) 0.1 k/uL (0-0.7); Eosinophils % (A) 1 %; HCT 43.4 % (34.0-46.0); HGB 14.8 gm/dL (11.4-16.0); Lymphocytes # (A) 2.5 k/uL (1.0-4.8); Lymphocytes % (A) 30 %; MCH 31.5 pg (25.0-35.0); MCHC 34.1 g/dL (31.0-37.0); MCV 92.2 fL (80.0-100.0); Monocytes # (A) 0.4 k/uL (0-1.0); Monocytes % (A) 5 %; Neutrophils # (A) 5.2 k/uL (1.3-7.7); Neutrophils % (A) 62 %; Platelet Count 265 k/uL (150-450); RDW 12.3 % (11.5-15.5); WBC 8.4 k/uL (3.8-10.6)
[2023-02-20 21:48] LABS: ALT 20 U/L (4-34); AST 18 U/L (14-36); African American GFR (CKD) >90 (>60 ml/min/1.73 sqM); Albumin 4.6 g/dL (3.5-5.0); Alkaline Phosphatase 49 U/L (38-126); Amylase 70 U/L (30-110); Anion Gap 16 mmol/L; Blood Urea Nitrogen 9 mg/dL (7-17); Calcium 9.8 mg/dL (8.4-10.2); Carbon Dioxide 16 mmol/L (22-30); Chloride 112 mmol/L (98-107); Glucose 90 mg/dL (74-99); Lipase 227 U/L (23-300); Magnesium 2.3 mg/dL (1.6-2.3); Non-African American GFR(CKD) >90 (>60 ml/min/1.73 sqM); Potassium 3.8 mmol/L (3.5-5.1); Sodium 144 mmol/L (137-145); Total Bilirubin 0.4 mg/dL (0.2-1.3); Total Protein 7.9 g/dL (6.3-8.2)
[2023-02-20] MEDS ORDERED: ONDANSETRON 4 MG ODT STARTER PACK 2 TAB BTL PO STA (23:29)
[2023-02-20] MEDS ORDERED: traMADol 50 MG STARTER PACK 3 TAB BTL PO STA (23:30)
--- NOTE | 2023-02-21 00:20 | CT ---
EXAM: CT Abdomen and Pelvis With Intravenous Contrast CLINICAL HISTORY: ITS.REASON CT Reason: Abdominal pain, acute, nonlocalized TECHNIQUE: Axial computed tomography images of the abdomen and pelvis with intravenous contrast. CTDI is 22.9 mGy and DLP is 1133.2 mGy-cm. This CT exam was performed using one or more of the following dose reduction techniques: automated exposure control, adjustment of the mA and/or kV according to patient size, and/or use of iterative reconstruction technique. COMPARISON: CT abdomen pelvis September 30, 2022. FINDINGS: Lung bases: Unremarkable. No mass. No consolidation. ABDOMEN: Liver: Unremarkable. No mass. Gallbladder and bile ducts: Unremarkable. No calcified stones. No ductal dilation. Pancreas: Unremarkable. No mass. No ductal dilation. Spleen: Unremarkable. No splenomegaly. Adrenals: RIGHT adrenal mass measures 3.5 x 2.8 cm, similar in appearance when compared to CT scan from September 30, 2022. Correlate with medical history. This may represent an adenom and can be confirmed on a noncontrast CT. Kidneys and ureters: Unremarkable. No solid mass. No hydronephrosis. Stomach and bowel: Unremarkable. No obstruction. No mucosal thickening. PELVIS: Appendix: No findings to suggest acute appendicitis. Bladder: Unremarkable. No mass. Reproductive: Unremarkable as visualized. ABDOMEN and PELVIS: Intraperitoneal space: Unremarkable. No free air. No significant fluid collection. No acute findings in the abdomen or pelvis. Bones/joints: No acute fracture. No dislocation. Soft tissues: Unremarkable. Vasculature: Unremarkable. No abdominal aortic aneurysm. Lymph nodes: Unremarkable. No enlarged lymph nodes. IMPRESSION: 1. No acute findings in the abdomen or pelvis. 2. RIGHT adrenal mass measures 3.5 x 2.8 cm, similar in appearance when compared to CT scan from September 30, 2022. Correlate with medical history. This may represent an adenom and can be confirmed on a noncontrast CT.
[2023-02-21 00:39] VITALS: BP 113/72; PULSE 97
== END 2023-02-21 00:11 | disposition home or self-care (01) ==
LOC: EC 19:05
DX: R11.2 Nausea with vomiting, unspecified (principal); R19.7 Diarrhea, unspecified; R10.9 Unspecified abdominal pain; E11.9 Type 2 diabetes mellitus without complications; I10 Essential (primary) hypertension; F31.9 Bipolar disorder, unspecified; F12.90 Cannabis use, unspecified, uncomplicated; Z87.891 Personal history of nicotine dependence; Z79.899 Other long term (current) drug therapy; Z79.4 Long term (current) use of insulin; Z20.822 Contact with and (suspected) exposure to COVID-19; Z88.0 Allergy status to penicillin; Z88.8 Allergy status to other drugs, medicaments and biological substances; Z88.5 Allergy status to narcotic agent
CPT/HCPCS: 36415; 80053; 82150; 83605; 83690; 83735; 85025; 81001; 81025; 87636; 74177; 99284; 96374; 96375; 96361; J2405; J2270; J1885; Q9967

== ENCOUNTER 2023-04-09 14:36 | Emergency (ER) | payer OTHER ==
--- NOTE | 2023-04-09 15:57 | ED ---
General Adult HPI - General Source: patient, RN notes reviewed Mode of arrival: wheelchair Limitations: no limitations <Niecy Fleming - Last Filed: 04/09/23 15:56> - General Source: patient, RN notes reviewed, old records reviewed <Chele Rao - Last Filed: 04/09/23 20:34> - General Chief complaint: Chest Pain Stated complaint: chest pain Time Seen by Provider: 04/09/23 15:56 - History of Present Illness Initial comments: 27 year old female presents to the emergency department for evaluation of central chest pain. She reports that it is worse after she eats. She denies nausea, vomiting, fever. (Niecy Fleming) Patient is a 27-year-old female who presents emergency department chest pain. Presents as a quick note originally. No significant cardiac history in herself. Has been having chest discomfort for 3 days. Has been constant. Describes it as a sharp sensation. Worse with movement and palpation. Also has a significant history of acid reflux. States pain is worse with swallowing and eating. States she has been taking her medications. His no other acute complaints at this time. Presents for further evaluation. Denies shortness of breath, fevers, chills. I evaluated patient when she was placed in a room. (Chele Rao) - Related Data Home Medications Medication Instructions Recorded Confirmed Albuterol Inhaler [Ventolin Hfa 1 - 2 puff INHALATION RT-Q6H PRN 09/30/22 09/30/22 Inhaler] Empagliflozin [Jardiance] 10 mg PO DAILY 09/30/22 09/30/22 Famotidine 40 mg PO DAILY 09/30/22 09/30/22 Fluticasone Nasal [place]ung[place] [Flonase 1 spray EA NOSTRIL DAILY 09/30/22 09/30/22 Nasal [place]ungie] Gabapentin [Neurontin] 400 mg PO TID 09/30/22 09/30/22 INSULIN LISPRO (humaLOG) [humaLOG] 3 units SQ TID-W/MEALS 09/30/22 09/30/22 Ibuprofen [Motrin] 800 mg PO QID PRN 09/30/22 09/30/22 LORazepam [Ativan] 0.5 mg PO DAILY PRN 09/30/22 09/30/22 Labetalol [Trandate] 100 mg PO BID 09/30/22 09/30/22 [place] Carbonate ER [Lithobid] 450 mg PO HS 09/30/22 09/30/22 Meloxicam [Mobic] 15 mg PO DAILY 09/30/22 09/30/22 Olanzapine/Samidorphan Malate 1 tab PO HS 09/30/22 09/30/22 [Lybalvi 10-10 mg Tablet] Omeprazole 40 mg PO DAILY 09/30/22 09/30/22 Potassium Chloride ER [K-Dur 10] 10 meq PO DAILY 09/30/22 09/30/22 QUEtiapine [SEROquel] 25 mg PO HS 09/30/22 09/30/22 QUEtiapine [SEROquel] 100 mg PO HS 09/30/22 09/30/22 Rimegepant Sulfate [Nurtec Odt] 75 mg PO DAILY PRN 09/30/22 09/30/22 Topiramate 200 mg PO TID 09/30/22 09/30/22 lamoTRIgine [LaMICtal] See Taper PO DIRECTED 09/30/22 09/30/22 levETIRAcetam [Keppra] 750 mg PO BID 09/30/22 09/30/22 lisinopriL [Zestril] 5 mg PO DAILY 09/30/22 09/30/22 medroxyPROGESTERone [Depo-Provera] 150 mg IM Q90D 09/30/22 09/30/22 tiZANidine [Zanaflex] 2 mg PO Q8HR PRN 09/30/22 09/30/22 Previous Rx's Medication Instructions Recorded Ondansetron Odt [Zofran Odt] 4 mg PO Q8HR PRN #15 tab 02/20/23 Allergies Allergy/AdvReac Type Severity Reaction Status Date / Time acetaminophen [From Tylenol] Allergy Rash/Hives Verified 04/09/23 15:12 duloxetine [From Cymbalta] Allergy Hallucinati Verified 04/09/23 15:12 ons levetiracetam [From Keppra] Allergy Unknown Verified 04/09/23 15:12 Penicillins Allergy Rash/Hives Verified 04/09/23 15:12 Review of Systems ROS Other: All systems not noted in ROS Statement are negative. <Niecy Fleming - Last Filed: 04/09/23 15:56> ROS Other: All systems not noted in ROS Statement are negative. <Chele Rao - Last Filed: 04/09/23 20:34> ROS Statement: Those systems with pertinent positive or pertinent negative responses have been documented in the HPI. Review of Systems: CONST: Denies fever EYES: Denies blurry vision ENT: Denies nasal congestion C/V: Endorses chest pain RESP: Denies shortness of breath GI: Denies abdominal pain : Denies dysuria SKIN: Denies rash. MSK: Denies joint pain. NEURO: Denies headache (Chele Rao) Past Medical History Past Medical History: Diabetes Mellitus, Hyperlipidemia, Hypertension, Seizure Disorder Additional Past Medical History / Comment(s): Epilepsy, mitral valve insufficancy, TBI 2013 History of Any Multi-Drug Resistant Organisms: None Reported Past Surgical History: Unable to Obtain Additional Past Surgical History / Comment(s): Tubes in ears when 5 years old Past Anesthesia/Blood Transfusion Reactions: No Reported Reaction Past Psychological History: Bipolar, Depression Smoking Status: Former smoker Past Alcohol Use History: Heavy Past Drug Use History: Marijuana - Past Family History Sister(s) Family Medical History: Asthma Additional Family Medical History / Comment(s): psychological Mother Family Medical History: Dementia Father Family Medical History: Myocardial Infarction ([place]) Additional Family Medical History / Comment(s): passed @ 72 from [place] <Niecy Fleming - Last Filed: 04/09/23 15:56> General Exam Limitations: no limitations <Niecy Fleming - Last Filed: 04/09/23 15:56> <Chele Rao - Last Filed: 04/09/23 20:34> - General Exam Comments Initial Comments: Visual Physical Exam Vital signs reviewed General: Well-appearing, nontoxic, no acute distress. Head: Normocephalic, atraumatic Eyes: PERRLA, EOMI ENT: Airway patent Chest: Nonlabored breathing Skin: No visual rash, normal skin tone Neuro: Alert and oriented 3 Musculoskeletal: No gross abnormalities (Niecy Fleming) General: Appears in no acute distress. HEAD: Normal with no signs of head trauma. EYES: PERRLA, EOMI, conjunctiva normal, no discharge. ENT: Hearing grossly intact, normal oropharynx. RESPIRATORY: Clear breath sounds bilaterally. No wheezes, rales, or rhonchi. C/V: Regular rate and rhythm. S1 and S2 auscultated, no edema, peripheral pulses 2+ and intact throughout ABD: Abd is soft, nontender, nondistended EXT: Normal range of motion, no obvious deformity. Chest pain reproducible on palpation. SKIN: No rashes or lesions observed on exposed skin. NEURO: Alert and oriented x 4. (Chele Rao) Course Vital Signs 04/09/23 04/09/23 04/09/23 15:13 17:54 17:55 Temperature 98.7 F 98.3 F Pulse Rate 110 H 116 H Pulse Rate [ 106 H Pulse Oximetery ] Respiratory 16 18 Rate Blood Pressure 102/69 108/71 O2 Sat by Pulse 100 97 Oximetry Medical Decision Making <Niecy Fleming - Last Filed: 04/09/23 15:56> - Lab Data Result diagrams: 04/09/23 18:31 04/09/23 18:31 - EKG Data -: EKG Interpreted by Me <Chele Rao - Last Filed: 04/09/23 20:34> - Medical Decision Making Quick note preformed by Niecy Fleming PA-C (Niecy Fleming) Was pt. sent in by a medical professional or institution ([facility], [employer], urgent care, hospital, or [place] health care facility...) When possible be specific @ -No Did you speak to anyone other than the patient for history (EMS, parent, family, police, friend...)? What history was obtained from this source @ -Patient's guardian is at the bedside with the patient. Assist with the history. Did you review nursing and triage notes (agree or disagree)? Why? @ -I reviewed and agree with nursing and triage notes Were old charts reviewed (outside hosp., previous admission, EMS record, old EKG, old radiological studies, urgent care reports/EKG's, [place] health care facility records)? Report findings @ -Old charts reviewed Differential Diagnosis (chest pain, altered mental status, abdominal pain women, abdominal pain men, vaginal bleeding, weakness, fever, dyspnea, syncope, headache, dizziness, GI bleed, back pain, seizure, CVA, palpatations, mental health, musculoskeletal)? @ -Chest wall pain, acid reflux, musculoskeletal pain, ACS, pneumothorax, pneumonia. This list is not all inclusive. EKG interpreted by me (3pts min.). @ -As above X-rays interpreted by me (1pt min.). @ -Chest x-ray reveals no obvious acute cardio pulmonary process. CT interpreted by me (1pt min.). @ -None done U/S interpreted by me (1pt. min.). @ -None done What testing was considered but not performed or refused? (CT, X-rays, U/S, labs)? Why? @ -None What meds were considered but not given or refused? Why? @ -None Did you discuss the management of the patient with other professionals (professionals i.e. , PA, [employer], lab, RT, psych nurse, social work manager, heavy equipment rental associate, t eacher, penal officer, patient case manager)? Give summary @ -No Was smoking cessation discussed for >3mins.? @ -No Was critical care preformed (if so, how long)? @ -No Were there social determinants of health that impacted care today? How? (Homelessness, low income, unemployed, alcoholism, drug addiction, transportation, low edu. Level, literacy, decrease access to med. care, half-way, rehab)? @ -No Was there de-escalation of care discussed even if they declined (Discuss DNR or withdrawal of care, Hospice)? DNR status @ -No What co-morbidities impacted this encounter? (DM, HTN, Smoking, COPD, CAD, Cancer, CVA, ARF, Chemo, Hep., AIDS, mental health diagnosis, sleep apnea, morbid obesity)? @ -None Was patient admitted / discharged? Hospital course, mention meds given and ro inocencio, prescriptions, significant lab abnormalities, going to OR and other pertinent info. @ -Patient presents with atypical chest pain. Originally evaluated as a quick note. Seems To be more chest wall pain versus acid reflux pain however we will obtain a cardiac workup at this time. She'll be sent directly treated with Toradol, Ativan, Maalox, 500 mL fluid bolus. Patient in agreement with this plan. EKG showed no signs of ischemia. Chest x-ray reveals no obvious acute cardio, process. Patient's laboratory studies are unremarkable, including undetectable troponin and d-dimer within normal limits. This is in the setting of chest pain for 3+ days. On reevaluation, patient is feeling improved. She is hungry and would like to leave. I did discuss with her her results. Heart scores low. I believe it is reasonable for the patient be discharged home at this time. She was in agreement this plan. Strict return precautions discussed. Seems to be more of chest wall pain versus muscle strain. \I instructed the patient to follow up with their PCP in the next 1-3 days. I explained that the patient should return to the emergency department if they experience any worsening symptoms. Strict return precautions were discussed with the patient. The patient expressed understanding of these instructions. I answered all questions that the patient had. The patient was discharged home in good condition with their prescriptions and follow up information. Undiagnosed new problem with uncertain prognosis? @ -No Drug Therapy requiring intensive monitoring for toxicity (Heparin, Nitro, Insulin, Cardizem)? @ -No Were any procedures done? @ -No Diagnosis/symptom? @ -Chest wall pain Acute, or Chronic, or Acute on Chronic? @ -Acute Uncomplicated (without systemic symptoms) or Complicated (systemic symptoms)? @ -Uncomplicated Side effects of treatment? @ -No Exacerbation, Progression, or Severe Exacerbation? @ -No Poses a threat to life or bodily function? How? (Chest pain, [place], [place], pneumonia, PE, COPD, DKA, ARF, appy, cholecystitis, CVA, Diverticulitis, Homicidal, Suicidal, threat to staff... and all critical care pts) @ -No (Chele Rao) - Lab Data Lab Results 04/09/23 04/09/23 04/09/23 Range/Units 18:31 18:31 18:31 WBC 7.7 (3.8-10.6) k/uL RBC 4.51 (3.80-5.40) m/uL Hgb 14.1 (11.4-16.0) gm/dL Hct 41.5 (34.0-46.0) % MCV 92.1 (80.0-100.0) fL MCH 31.4 (25.0-35.0) pg MCHC 34.1 (31.0-37.0) g/dL RDW 13.0 (11.5-15.5) % Plt Count 258 (150-450) k/uL MPV 8.4 Neutrophils % 63 % Lymphocytes % 30 % Monocytes % 5 % Eosinophils % 1 % Basophils % 1 % Neutrophils # 4.8 (1.3-7.7) k/uL Lymphocytes # 2.3 (1.0-4.8) k/uL Monocytes # 0.3 (0-1.0) k/uL Eosinophils # 0.1 (0-0.7) k/uL Basophils # 0.0 (0-0.2) k/uL PT 10.8 (10.0-12.5) sec INR 1.0 (<1.2) APTT 24.1 (22.0-30.0) sec D-Dimer 0.28 (<0.60) mg/L FEU Sodium 142 (137-145) mmol/L Potassium 4.2 (3.5-5.1) mmol/L Chloride 115 H (98-107) mmol/L Carbon Dioxide 19 L (22-30) mmol/L Anion Gap 8 mmol/L BUN 13 (7-17) mg/dL Creatinine 0.57 (0.52-1.04) mg/dL Est GFR (CKD-EPI)AfAm >90 (>60 ml/min/1.73 sqM) Est GFR (CKD-EPI)NonAf >90 (>60 ml/min/1.73 sqM) Glucose 110 H (74-99) mg/dL Calcium 9.3 (8.4-10.2) mg/dL Magnesium 2.3 (1.6-2.3) mg/dL Total Bilirubin 0.3 (0.2-1.3) mg/dL AST 17 (14-36) U/L ALT 19 (4-34) U/L Alkaline Phosphatase 55 (38-126) U/L Troponin I (0.000-0.034) ng/mL NT-Pro-B Natriuret Pep 37 pg/mL Total Protein 7.3 (6.3-8.2) g/dL Albumin 4.2 (3.5-5.0) g/dL Lipase 213 (23-300) U/L 04/09/23 Range/Units 18:31 WBC (3.8-10.6) k/uL RBC (3.80-5.40) m/uL Hgb (11.4-16.0) gm/dL Hct (34.0-46.0) % MCV (80.0-100.0) fL MCH (25.0-35.0) pg MCHC (31.0-37.0) g/dL RDW (11.5-15.5) % Plt Count (150-450) k/uL MPV Neutrophils % % Lymphocytes % % Monocytes % % Eosinophils % % Basophils % % Neutrophils # (1.3-7.7) k/uL Lymphocytes # (1.0-4.8) k/uL Monocytes # (0-1.0) k/uL Eosinophils # (0-0.7) k/uL Basophils # (0-0.2) k/uL PT (10.0-12.5) sec INR (<1.2) APTT (22.0-30.0) sec D-Dimer (<0.60) mg/L FEU Sodium (137-145) mmol/L Potassium (3.5-5.1) mmol/L Chloride (98-107) mmol/L Carbon Dioxide (22-30) mmol/L Anion Gap mmol/L BUN (7-17) mg/dL Creatinine (0.52-1.04) mg/dL Est GFR (CKD-EPI)AfAm (>60 ml/min/1.73 sqM) Est GFR (CKD-EPI)NonAf (>60 ml/min/1.73 sqM) Glucose (74-99) mg/dL Calcium (8.4-10.2) mg/dL Magnesium (1.6-2.3) mg/dL Total Bilirubin (0.2-1.3) mg/dL AST (14-36) U/L ALT (4-34) U/L Alkaline Phosphatase (38-126) U/L Troponin I <0.012 (0.000-0.034) ng/mL NT-Pro-B Natriuret Pep pg/mL Total Protein (6.3-8.2) g/dL Albumin (3.5-5.0) g/dL Lipase (23-300) U/L - EKG Data EKG Comments: 12-lead Electrocardiogram Interpretation Note EKG was reviewed and interpreted by myself. 12-lead ECG performed at 1615 is interpreted by me as revealing sinus tachycardia with at a rate of 106 beats per minute. [place] is normal. [place] interval is 189 ms, QRS duration is 87 ms, QTc is 406 ms.. There were no ST or T wave abnormalities to suggest myocardial ischemia or injury. R wave progression across the precordium was satisfactory. By my interpretation this EKG is non-diagnostic for acute ischemia. (Chele Rao) Disposition <Niecy Fleming - Last Filed: 04/09/23 15:56> Is patient prescribed a controlled substance at d/c from ED?: No Time of Disposition: 19:59 <Chele Rao - Last Filed: 04/09/23 20:34> Clinical Impression: Chest wall pain Disposition: HOME SELF-CARE Condition: Good Instructions (If sedation given, give patient instructions): Chest Pain (ED) Referrals: Heber Kumar MD [Primary Care Provider] - 1-2 days
--- NOTE | 2023-04-09 16:58 | XR ---
EXAMINATION TYPE: XR chest 2V DATE OF EXAM: 04/09/2023 COMPARISON: None INDICATION: Pain TECHNIQUE: Frontal and lateral views of the chest are obtained. FINDINGS: The heart size is normal. The pulmonary vasculature is normal. The lungs are clear. IMPRESSION: 1. No acute pulmonary process.
[2023-04-09 17:57] VITALS: TEMP 98.3
[2023-04-09] MEDS ORDERED: LORazepam 1 MG TAB PO STA (18:23)
[2023-04-09] MEDS ORDERED: MAG HYDROX/AL HYDROX/SIMETH 30 ML, HYOSCYAMINE ELIXIR 10 ML, LIDOCAINE VISCOUS 2% 10 ML PO STA ×6 (18:23→20:02)
[2023-04-09] MEDS ORDERED: KETOROLAC 15 MG/ML 1 ML VIAL IVP STA (18:23)
[2023-04-09] MEDS ORDERED: SODIUM CHLORIDE 0.9% 500 ML 500 ML IV STA (18:23)
[2023-04-09 19:17] LABS: Basophils % (A) 1 %; Eosinophils # (A) 0.1 k/uL (0-0.7); Eosinophils % (A) 1 %; HCT 41.5 % (34.0-46.0); HGB 14.1 gm/dL (11.4-16.0); Lymphocytes # (A) 2.3 k/uL (1.0-4.8); Lymphocytes % (A) 30 %; MCH 31.4 pg (25.0-35.0); MCHC 34.1 g/dL (31.0-37.0); MCV 92.1 fL (80.0-100.0); Mean Platelet Volume 8.4; Monocytes # (A) 0.3 k/uL (0-1.0); Monocytes % (A) 5 %; Neutrophils # (A) 4.8 k/uL (1.3-7.7); Neutrophils % (A) 63 %; Platelet Count 258 k/uL (150-450); RBC 4.51 m/uL (3.80-5.40); WBC 7.7 k/uL (3.8-10.6)
[2023-04-09 19:29] LABS: ALT 19 U/L (4-34); AST 17 U/L (14-36); African American GFR (CKD) >90 (>60 ml/min/1.73 sqM); Albumin 4.2 g/dL (3.5-5.0); Alkaline Phosphatase 55 U/L (38-126); Anion Gap 8 mmol/L; Blood Urea Nitrogen 13 mg/dL (7-17); Calcium 9.3 mg/dL (8.4-10.2); Carbon Dioxide 19 mmol/L (22-30); Chloride 115 mmol/L (98-107); Glucose 110 mg/dL (74-99); Lipase 213 U/L (23-300); Magnesium 2.3 mg/dL (1.6-2.3); Non-African American GFR(CKD) >90 (>60 ml/min/1.73 sqM); Potassium 4.2 mmol/L (3.5-5.1); Sodium 142 mmol/L (137-145); Total Bilirubin 0.3 mg/dL (0.2-1.3); Total Protein 7.3 g/dL (6.3-8.2)
[2023-04-09 19:35] LABS: Partial Thromboplastin Time 24.1 sec (22.0-30.0); Prothrombin Time 10.8 sec (10.0-12.5)
[2023-04-09 19:36] LABS: NT-Pro-B-Type Natriuretic Pept 37 pg/mL
[2023-04-09 21:38] VITALS: BP 102/70; PULSE 111; RESP 20
== END 2023-04-09 20:26 | disposition home or self-care (01) ==
LOC: EC 14:36
DX: R07.89 Other chest pain (principal); I10 Essential (primary) hypertension; E11.9 Type 2 diabetes mellitus without complications; E78.5 Hyperlipidemia, unspecified; K21.9 Gastro-esophageal reflux disease without esophagitis; F31.9 Bipolar disorder, unspecified; F12.90 Cannabis use, unspecified, uncomplicated; Z79.4 Long term (current) use of insulin; Z79.899 Other long term (current) drug therapy; Z79.84 Long term (current) use of oral hypoglycemic drugs; Z79.1 Long term (current) use of non-steroidal anti-inflammatories (NSAID); Z87.891 Personal history of nicotine dependence; Z88.0 Allergy status to penicillin; Z88.6 Allergy status to analgesic agent; Z88.8 Allergy status to other drugs, medicaments and biological substances
CPT/HCPCS: 36415; 93005; 85379; 83880; 80053; 83690; 83735; 84484; 85025; 85610; 85730; 71046; 99285; 96374; 96361; J1885

== ENCOUNTER 2023-04-12 09:23 | Emergency (ER) | payer OTHER ==
[2023-04-12] MEDS ORDERED: SODIUM CHLORIDE 0.9% 500 ML 500 ML IV STA (09:29)
[2023-04-12 09:37] VITALS: PULSE 96; RESP 18
--- NOTE | 2023-04-12 09:48 | ED ---
General Adult HPI - General Stated complaint: Seizure Time Seen by Provider: 04/12/23 09:25 Source: patient, RN notes reviewed, Caregiver Mode of arrival: ambulatory Limitations: altered mental status - History of Present Illness Initial comments: 27-year-old female presents emergency department from outpatient studies for seizure. Patient has a history of seizures when she does not take her medication she reportedly has seizures. She states she held her medication because she was having x-rays and ultrasound this morning and had a witnessed seizure with no head injury. Patient is postictal currently. Patient caregiver is here providing all information there is very short seizure less than 1 minute. No other information was provided currently. - Related Data Home Medications Medication Instructions Recorded Confirmed LORazepam [Ativan] 0.5 mg PO DAILY PRN 09/30/22 04/12/23 Topiramate 200 mg PO TID@0830,1430,209909/30/22 04/12/23 medroxyPROGESTERone [Depo-Provera] 150 mg IM Q90D 09/30/22 04/12/23 Cyclobenzaprine [Flexeril] 10 mg PO HS PRN 04/12/23 04/12/23 Gabapentin 300 mg PO TID@0830,1430,209904/12/23 04/12/23 OXcarbazepine 300 mg PO BID@0830,209904/12/23 04/12/23 Rosuvastatin Calcium [Crestor] 40 mg PO HS 04/12/23 04/12/23 diazePAM [Valtoco] 10 mg NASAL DIRECTED PRN 04/12/23 04/12/23 oxyBUTYnin chloride [Ditropan] 5 mg PO BID@0830,209904/12/23 04/12/23 Allergies Allergy/AdvReac Type Severity Reaction Status Date / Time acetaminophen [From Tylenol] Allergy Rash/Hives Verified 04/12/23 09:44 diphenhydramine Allergy Rash/Hives Verified 04/12/23 09:44 [From Benadryl] levetiracetam [From Keppra] Allergy Unknown Verified 04/12/23 09:44 Penicillins Allergy Rash/Hives Verified 04/12/23 09:44 duloxetine [From Cymbalta] AdvReac Hallucinati Verified 04/12/23 09:44 ons fluoxetine [From Prozac] AdvReac Hallucinati Verified 04/12/23 09:44 ons Review of Systems ROS Statement: Those systems with pertinent positive or pertinent negative responses have been documented in the HPI. ROS Other: All systems not noted in ROS Statement are negative. Past Medical History Past Medical History: Diabetes Mellitus, Hyperlipidemia, Hypertension, Seizure Disorder Additional Past Medical History / Comment(s): Epilepsy, mitral valve insufficancy, TBI 2013 History of Any Multi-Drug Resistant Organisms: None Reported Past Surgical History: Unable to Obtain Additional Past Surgical History / Comment(s): Tubes in ears when 5 years old Past Anesthesia/Blood Transfusion Reactions: No Reported Reaction Past Psychological History: Bipolar, Depression Smoking Status: Former smoker Past Alcohol Use History: Heavy Past Drug Use History: Marijuana - Past Family History Sister(s) Family Medical History: Asthma Additional Family Medical History / Comment(s): psychological Mother Family Medical History: Dementia Father Family Medical History: Myocardial Infarction ([place]) Additional Family Medical History / Comment(s): passed @ 70 from [place] General Exam Limitations: altered mental status (Postictal) General appearance: in no apparent distress Head exam: Present: atraumatic, normocephalic, normal inspection Eye exam: Present: normal appearance, PERRL, EOMI. Absent: scleral icterus, conjunctival injection, periorbital swelling ENT exam: Present: normal exam, mucous membranes moist Neck exam: Present: normal inspection. Absent: tenderness, meningismus, lymphadenopathy Respiratory exam: Present: normal lung sounds bilaterally. Absent: respiratory distress, wheezes, rales, rhonchi, stridor Cardiovascular Exam: Present: regular rate, normal rhythm, normal heart sounds. Absent: systolic murmur, diastolic murmur, rubs, gallop, clicks Neurological exam: Present: motor sensory deficit Skin exam: Present: warm, dry, intact, normal color. Absent: rash Course Vital Signs 04/12/23 09:24 Temperature 98.7 F Pulse Rate 96 Respiratory 18 Rate Blood Pressure 104/72 O2 Sat by Pulse 100 Oximetry EKG Findings - EKG Comments: EKG Findings:: EKG performed at 9: 26 sinus tachycardia rate of 104 AR 182 QRS 89 QT/QTc 353/414 - EKG Results: EKG: interpreted by PJ Medical Decision Making - Medical Decision Making Was pt. sent in by a medical professional or institution (Dr., PA, KETTLE GIRL, urgent care, hospital, or jail...) When possible be specific @ -No Did you speak to anyone other than the patient for history (EMS, parent, family, police, friend...)? What history was obtained from this source @ -caregiver giving all information upon arrival] Did you review nursing and triage notes (agree or disagree)? Why? @ -I reviewed and agree with nursing and triage notes Were old charts reviewed (outside hosp., previous admission, EMS record, old EKG, old radiological studies, urgent care reports/EKG's, jail records)? Report findings @ -No old charts were reviewed Differential Diagnosis (chest pain, altered mental status, abdominal pain women, abdominal pain men, vaginal bleeding, weakness, fever, dyspnea, syncope, headache, dizziness, GI bleed, back pain, seizure, CVA, palpatations, mental health, musculoskeletal)? @ -Differential Seizure: Recurrent seizure disorder, febrile seizure, alcohol withdrawal, stimulants, meningitis, encephalitis, intercranial hemorrhage, intracranial tumor, stroke, eclampsia, thyrotoxicosis, hypocalcemia, hyponatremia, hypernatremia, hypomagnesemia, psychogenic, this is not meant to be an all-inclusive list. EKG interpreted by me (3pts min.). @ -As above X-rays interpreted by me (1pt min.). @ -None done CT interpreted by me (1pt min.). @ -None done U/S interpreted by me (1pt. min.). @ -None done What testing was considered but not performed or refused? (CT, X-rays, U/S, labs)? Why? @ -None What meds were considered but not given or refused? Why? @ -None Did you discuss the management of the patient with other professionals (professionals i.e. TERRIE Dickson, KETTLE GIRL, lab, RT, psych nurse, social insurance analyst, assisted living director, teacher, special officer, heel caser)? Give summary @ -No Was smoking cessation discussed for >3mins.? @ -No Was critical care preformed (if so, how long)? @ -No Were there social determinants of health that impacted care today? How? (Homelessness, low income, unemployed, alcoholism, drug addiction, transportation, low edu. Level, literacy, decrease access to med. care, residential, rehab)? @ -No Was there de-escalation of care discussed even if they declined (Discuss DNR or withdrawal of care, Hospice)? DNR status @ -No What co-morbidities impacted this encounter? (DM, HTN, Smoking, COPD, CAD, Cancer, CVA, ARF, Chemo, Hep., AIDS, mental health diagnosis, sleep apnea, morbid obesity)? @ -Seizure Was patient admitted / discharged? Hospital course, mention meds given and route, prescriptions, significant lab abnormalities, going to OR and other pertinent info. @ -[Discharge patient presented postictal after witnessed seizure with no head injury. Patient missed her medications today due to testing. She was provided these medications in the emergency department she is back at her baseline with no complaints patient is discharged in stable condition. Undiagnosed new problem with uncertain prognosis? @ -No Drug Therapy requiring intensive monitoring for toxicity (Heparin, Nitro, Insulin, Cardizem)? @ -No Were any procedures done? @ -No Diagnosis/symptom? @ - recurrent seizure] Acute, or Chronic, or Acute on Chronic? @ -[Acute Uncomplicated (without systemic symptoms) or Complicated (systemic symptoms)? @ -Complicated Side effects of treatment? @ -[No Exacerbation, Progression, or Severe Exacerbation? @ -No Poses a threat to life or bodily function? How? (Chest pain, USA, SC, pneumonia, PE, COPD, DKA, ARF, appy, cholecystitis, CVA, Diverticulitis, Homicidal, Suicidal, threat to staff... and all critical care pts) @ -No - Lab Data Result diagrams: 04/12/23 09:32 04/12/23 09:32 Lab Results 04/12/23 04/12/23 Range/Units 09:32 09:32 WBC 7.4 (3.8-10.6) k/uL RBC 4.69 (3.80-5.40) m/uL Hgb 14.8 (11.4-16.0) gm/dL Hct 43.5 (34.0-46.0) % MCV 92.8 (80.0-100.0) fL MCH 31.6 (25.0-35.0) pg MCHC 34.0 (31.0-37.0) g/dL RDW 13.1 (11.5-15.5) % Plt Count 221 (150-450) k/uL MPV 8.4 Neutrophils % 73 % Lymphocytes % 18 % Monocytes % 6 % Eosinophils % 1 % Basophils % 0 % Neutrophils # 5.4 (1.3-7.7) k/uL Lymphocytes # 1.3 (1.0-4.8) k/uL Monocytes # 0.4 (0-1.0) k/uL Eosinophils # 0.1 (0-0.7) k/uL Basophils # 0.0 (0-0.2) k/uL Sodium 144 (137-145) mmol/L Potassium 4.0 (3.5-5.1) mmol/L Chloride 115 H (98-107) mmol/L Carbon Dioxide 19 L (22-30) mmol/L Anion Gap 10 mmol/L BUN 16 (7-17) mg/dL Creatinine 0.68 (0.52-1.04) mg/dL Est GFR (CKD-EPI)AfAm >90 (>60 ml/min/1.73 sqM) Est GFR (CKD-EPI)NonAf >90 (>60 ml/min/1.73 sqM) Glucose 96 (74-99) mg/dL Calcium 9.5 (8.4-10.2) mg/dL Magnesium 2.1 (1.6-2.3) mg/dL Total Bilirubin 0.4 (0.2-1.3) mg/dL AST 22 (14-36) U/L ALT 26 (4-34) U/L Alkaline Phosphatase 61 (38-126) U/L Total Protein 7.8 (6.3-8.2) g/dL Albumin 4.5 (3.5-5.0) g/dL Disposition Clinical Impression: Seizure Disposition: HOME SELF-CARE Condition: Stable Instructions (If sedation given, give patient instructions): Recurrent Seizures in Adults (ED) Additional Instructions: Please return to the Emergency Department if symptoms worsen or any other concerns. Is patient prescribed a controlled substance at d/c from ED?: No Referrals: Heber Kumar MD [Primary Care Provider] - 1-2 days Time of Disposition: 10:25
[2023-04-12] MEDS ORDERED: GABAPENTIN 300 MG CAP PO STA (09:54)
[2023-04-12] MEDS ORDERED: OXcarbazepine 300 MG TAB PO STA (09:54)
[2023-04-12 09:56] LABS: Basophils % (A) 0 %; Eosinophils # (A) 0.1 k/uL (0-0.7); Eosinophils % (A) 1 %; HCT 43.5 % (34.0-46.0); HGB 14.8 gm/dL (11.4-16.0); Lymphocytes # (A) 1.3 k/uL (1.0-4.8); Lymphocytes % (A) 18 %; MCH 31.6 pg (25.0-35.0); MCV 92.8 fL (80.0-100.0); Mean Platelet Volume 8.4; Monocytes # (A) 0.4 k/uL (0-1.0); Monocytes % (A) 6 %; Neutrophils # (A) 5.4 k/uL (1.3-7.7); Neutrophils % (A) 73 %; Platelet Count 221 k/uL (150-450); RBC 4.69 m/uL (3.80-5.40); RDW 13.1 % (11.5-15.5); WBC 7.4 k/uL (3.8-10.6)
[2023-04-12 10:10] LABS: ALT 26 U/L (4-34); AST 22 U/L (14-36); African American GFR (CKD) >90 (>60 ml/min/1.73 sqM); Albumin 4.5 g/dL (3.5-5.0); Alkaline Phosphatase 61 U/L (38-126); Anion Gap 10 mmol/L; Blood Urea Nitrogen 16 mg/dL (7-17); Calcium 9.5 mg/dL (8.4-10.2); Carbon Dioxide 19 mmol/L (22-30); Chloride 115 mmol/L (98-107); Glucose 96 mg/dL (74-99); Magnesium 2.1 mg/dL (1.6-2.3); Non-African American GFR(CKD) >90 (>60 ml/min/1.73 sqM); Sodium 144 mmol/L (137-145); Total Bilirubin 0.4 mg/dL (0.2-1.3); Total Protein 7.8 g/dL (6.3-8.2)
[2023-04-12 11:19] VITALS: BP 103/63; TEMP 98.6
== END 2023-04-12 10:42 | disposition home or self-care (01) ==
LOC: EC 09:23
DX: G40.909 Epilepsy, unspecified, not intractable, without status epilepticus (principal); R00.0 Tachycardia, unspecified; E11.9 Type 2 diabetes mellitus without complications; I10 Essential (primary) hypertension; E78.5 Hyperlipidemia, unspecified; F31.9 Bipolar disorder, unspecified; F12.90 Cannabis use, unspecified, uncomplicated; Z87.891 Personal history of nicotine dependence; Z88.0 Allergy status to penicillin; Z88.6 Allergy status to analgesic agent; Z88.8 Allergy status to other drugs, medicaments and biological substances; Z79.899 Other long term (current) drug therapy
CPT/HCPCS: 36415; 80053; 83735; 85025; 93005; 96360; 99284

== ENCOUNTER → 2023-04-12 | Outpatient (CLI) | payer OTHER ==
--- NOTE | 2023-04-12 09:20 | US ---
EXAMINATION TYPE: US gallbladder DATE OF EXAM: 04/12/2023 COMPARISON: NONE CLINICAL INDICATION: Female, 27 years old with history of R10.13 EPIGASTRIC PAIN; pain TECHNIQUE: Multiple sonographic images of the right upper quadrant are obtained. FINDINGS: EXAM MEASUREMENTS: Liver Length: 17.7 cm Gallbladder Wall: .2 cm CBD: .5 cm Right Kidney: 11.5 x 4.6 x 3.8 cm Pancreas: Tail obscured by overlying bowel gas Liver: Course echotexture, no masses dilated ducts or cystic structures. Gallbladder: No stones seen Evidence for sonographic Kwok's sign: No CBD: wnl Right Kidney: No hydronephrosis or masses seen IMPRESSION: No evidence for acute process.
== END | disposition home or self-care (01) ==
LOC: RADUSWWP 08:00
PROVIDERS: ATTEND Family Medicine
DX: R10.13 Epigastric pain (principal); R14.0 Abdominal distension (gaseous); R19.7 Diarrhea, unspecified
CPT/HCPCS: 76705

== ENCOUNTER 2023-08-13 13:49 | Emergency (ER) | payer OTHER ==
--- NOTE | 2023-08-13 14:17 | ED ---
General Adult HPI - General Chief complaint: Psychiatric Symptoms Stated complaint: Petitioned Time Seen by Provider: 08/13/23 13:58 Source: patient, RN notes reviewed, old records reviewed Mode of arrival: ambulatory Limitations: no limitations - History of Present Illness Initial comments: 27-year-old female presenting for court ordered petition, reports of suicidal statements. Patient currently denies, states she has no suicidal statements and feels fine. She has no complaints. Patient brought in by local police. - Related Data Home Medications Medication Instructions Recorded Confirmed LORazepam [Ativan] 0.5 mg PO DAILY PRN 09/30/22 04/12/23 Topiramate 200 mg PO TID@0830,1430,2100 09/30/22 04/12/23 medroxyPROGESTERone [Depo-Provera] 150 mg IM Q90D 09/30/22 04/12/23 Cyclobenzaprine [Flexeril] 10 mg PO HS PRN 04/12/23 04/12/23 Gabapentin 300 mg PO TID@0830,1430,209904/12/23 04/12/23 OXcarbazepine 300 mg PO BID@0830,2100 04/12/23 04/12/23 Rosuvastatin Calcium [Crestor] 40 mg PO HS 04/12/23 04/12/23 diazePAM [Valtoco] 10 mg NASAL DIRECTED PRN 04/12/23 04/12/23 oxyBUTYnin chloride [Ditropan] 5 mg PO BID@0830,2100 04/12/23 04/12/23 Allergies Allergy/AdvReac Type Severity Reaction Status Date / Time acetaminophen [From Tylenol] Allergy Rash/Hives Verified 04/12/23 09:44 diphenhydramine Allergy Rash/Hives Verified 04/12/23 09:44 [From Benadryl] levetiracetam [From Keppra] Allergy Unknown Verified 04/12/23 09:44 Penicillins Allergy Rash/Hives Verified 04/12/23 09:44 duloxetine [From Cymbalta] AdvReac Hallucinati Verified 04/12/23 09:44 ons fluoxetine [From Prozac] AdvReac Hallucinati Verified 04/12/23 09:44 ons Review of Systems ROS Statement: Those systems with pertinent positive or pertinent negative responses have been documented in the HPI. ROS Other: All systems not noted in ROS Statement are negative. Past Medical History Past Medical History: Diabetes Mellitus, Hyperlipidemia, Hypertension, Seizure Disorder Additional Past Medical History / Comment(s): Epilepsy, mitral valve insufficancy, TBI 2012 History of Any Multi-Drug Resistant Organisms: None Reported Past Surgical History: Unable to Obtain Additional Past Surgical History / Comment(s): Tubes in ears when 5 years old Past Anesthesia/Blood Transfusion Reactions: No Reported Reaction Past Psychological History: Bipolar, Depression Smoking Status: Former smoker Past Alcohol Use History: Heavy Past Drug Use History: Marijuana - Past Family History Sister(s) Family Medical History: Asthma Additional Family Medical History / Comment(s): psychological Mother Family Medical History: Dementia Father Family Medical History: Myocardial Infarction ([place]) Additional Family Medical History / Comment(s): passed @ 70 from [place] General Exam Limitations: no limitations General appearance: alert, in no apparent distress Head exam: Present: atraumatic, normocephalic Eye exam: Present: normal appearance, PERRL ENT exam: Present: normal exam Neck exam: Present: normal inspection Respiratory exam: Present: normal lung sounds bilaterally. Absent: respiratory distress Cardiovascular Exam: Present: regular rate, normal rhythm GI/Abdominal exam: Present: soft. Absent: distended, tenderness, guarding Neurological exam: Present: alert, oriented X3 Psychiatric exam: Present: normal affect, normal mood. Absent: depressed, suicidal ideation Skin exam: Present: warm, dry Course Vital Signs 08/13/23 13:55 Temperature 98.3 F Pulse Rate 130 H Respiratory 20 Rate Blood Pressure 128/85 O2 Sat by Pulse 98 Oximetry Medical Decision Making - Medical Decision Making Was pt. sent in by a medical professional or institution (, PA, DECATOR OPERATOR, urgent care, hospital, or skilled nursing...) When possible be specific @ -No Did you speak to anyone other than the patient for history (EMS, parent, family, police, friend...)? What history was obtained from this source @ -No Did you review nursing and triage notes (agree or disagree)? Why? @ -I reviewed and agree with nursing and triage notes Were old charts reviewed (outside hosp., previous admission, EMS record, old EKG, old radiological studies, urgent care reports/EKG's, skilled nursing records)? Report findings @ -No old charts were reviewed Differential Mental Health Depression, anxiety, bipolar, psychosis, schizophrenia, borderline personality, situational depression, adjustment disorder, behavioral disorder, brain tumor, malingering, substance abuse, encephalopathy, medication reaction, dementia, hypothyroidism, degenerative neurologic disorder, lupus.... This is not meant to be all-inclusive list EKG interpreted by me (3pts min.). @ -As above X-rays interpreted by me (1pt min.). @ -None done CT interpreted by me (1pt min.). @ -None done U/S interpreted by me (1pt. min.). @ -None done What testing was considered but not performed or refused? (CT, X-rays, U/S, labs)? Why? @ -None What meds were considered but not given or refused? Why? @ -None Did you discuss the management of the patient with other professionals (professionals i.e. , PA, DECATOR OPERATOR, lab, RT, psych nurse, social worker masters, tool maker bench, teacher, surveillance sensor officer, field nurse case manager)? Give summary @ -No Was smoking cessation discussed for >3mins.? @ -No Was critical care preformed (if so, how long)? @ -No Were there social determinants of health that impacted care today? How? (Ho melessness, low income, unemployed, alcoholism, drug addiction, transportation, low edu. Level, literacy, decrease access to med. care, fci, rehab)? @ -No Was there de-escalation of care discussed even if they declined (Discuss DNR or withdrawal of care, Hospice)? DNR status @ -No What co-morbidities impacted this encounter? (DM, HTN, Smoking, COPD, CAD, Cancer, CVA, ARF, Chemo, Hep., AIDS, mental health diagnosis, sleep apnea, morbid obesity)? @Depression Was patient admitted / discharged? Hospital course, mention meds given and route, prescriptions, significant lab abnormalities, going to OR and other pertinent info. @ -Patient cleared for EPS, awaiting disposition Patient was evaluated by EPS and felt to be stable for discharge. I do agree with this assessment. Undiagnosed new problem with uncertain prognosis? @ -No Drug Therapy requiring intensive monitoring for toxicity (Heparin, Nitro, Insulin, Cardizem)? @ -No Were any procedures done? @ -No Diagnosis/symptom? @ -Depression Acute, or Chronic, or Acute on Chronic? @ -Chronic Uncomplicated (without systemic symptoms) or Complicated (systemic symptoms)? @ -Default Side effects of treatment? @ -No Exacerbation, Progression, or Severe Exacerbation? @ -No Poses a threat to life or bodily function? How? (Chest pain, USA, [place], pneumonia, PE, COPD, DKA, ARF, appy, cholecystitis, CVA, Diverticulitis, Homicidal, Suic idal, threat to staff... and all critical care pts) @ -No Disposition Clinical Impression: Depression Disposition: HOME SELF-CARE Condition: Fair Is patient prescribed a controlled substance at d/c from ED?: No Referrals: Heber Kumar MD [Primary Care Provider] - 1-2 days Time of Disposition: 15:47
[2023-08-13] MEDS: GABAPENTIN 100 MG CAP PO STA (15:41)
[2023-08-13] MEDS: TOPIRAMATE 100 MG TAB PO STA (15:41)
[2023-08-13 16:04] VITALS: BP 100/66; PULSE 118; RESP 18; TEMP 97.8
== END 2023-08-13 16:02 | disposition home or self-care (01) ==
LOC: EC 13:49 → EEVIPCON 13:49 → EC 16:02
DX: F32.A Depression, unspecified (principal); F12.90 Cannabis use, unspecified, uncomplicated; Z88.0 Allergy status to penicillin; Z88.6 Allergy status to analgesic agent; Z88.8 Allergy status to other drugs, medicaments and biological substances; Z87.891 Personal history of nicotine dependence
CPT/HCPCS: 82075; 99285